=== PATIENT | female | born 1990 | race Caucasian/White ===

== ENCOUNTER → 2017-09-24 11:03 | Outpatient (CLI) | payer BC, SELFPAY ==
--- NOTE | 2017-09-24 11:07 | RAD_ITS ---
STUDY: X-RAY - LEFT HAND, ATTENTION FOURTH FINGER REASON FOR EXAM: Female, 27 years old. Pain, history of remote injury TECHNIQUE: Three view(s) of the finger were obtained. COMPARISON: None. FINDINGS: Bones: There are no acute osseous abnormalities. Joints: The visualized joints are unremarkable. Soft tissues: The soft tissues are unremarkable. Foreign body: None RAD/Finger(s) Min 2 Views IMPRESSION: No significant abnormalities are seen radiographically in the left fourth finger. Electronically Signed: Akilah Moser MD at 6:41 EDT Tel Direct: [phone], Service support ,
== END ==
PROVIDERS: Family Provider Family Medicine; PCP Family Medicine; Visit Provider Family Medicine
DX: M79.645 Pain in left finger(s) (principal)
CPT/HCPCS: 73140

== ENCOUNTER 2017-11-05 15:30 | Outpatient (RCR) | payer BC, SELFPAY ==
--- NOTE | 2017-10-09 15:20 | HP.OTEVAL_ITS ---
Patient's Visit Information HAILEY HINSON is a 27 year old F, referred to Occupational Therapy by Ursula Foster MD,, with a diagnosis of Finger pain L hand. Date of Evaluation: 10/08/17 Occupational Therapist: Ama Lechuga - Subjective Subjective: Pt seen for initial occupational therapy evaluation for increased pain L hand 4th digit. 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 She is R hand dominent. - Pain Left Hand 5 Pain Intensity Range: 5, 6, 7 - Objective Objective/Observation: Pt demo increased pain, edema and stiffness of L ring finger. - ROM MP: R 0/90' L 0/115 PIP: R 0/70, L 0/90 ROM Comments: Decreased ROM L PIP, MP joint flexion middle finger. - Strength Spool Fixer: R 85#, L 55# Lateral Pinch: R 20#, L 18# Tripod Pinch: R 16#, L 14# Strength Comments: Pt demo decreased merchandise manager strength and pinch with L hand. - Edema Other: Increased edema noted L 4th digit, no pitting edema - Sensation Sensation Comments: No numbness or tingling noted - DASH-Disabilities of Arm, Shoulder& Hand DASH Sum: 64 - Goals Goal:: Pt will demo increased L hand merchandise manager strength by 30# to increase independence with opening containers. Goal:: Pt will progress w/ L ring finger flexion of PIP and MP joint my 10' with use of ROM exercises and modalities at needed to increase pts functional use of L ring finger. Goal:: Pt will demo pain no greater than 1/10 L ring finger by d/c from occupational therapy with use of modalities as needed. Goal:: Pt will be educated on joint protection/energy conservation techniques for L ring finger with good understanding and demo 100%x. Goal:: Pt will be educated on HEP and scar tissue massage techniques to complete at home for L ring finger with good understanding and demo 100%x. - Rehabilitation General Assessment: Pt demo increased pain and stiffness L ring finger with decreased strength in L hand. Pt demo increased edema in L ring finger all indicating a need for occupational therapy services to increase her L hand strength, and decrease pain and stiffness with the use of modalities as well as educate on HEP to increase pts functional use of L ring finger. Rehabilitation Potential: Excellent - Anticipated Interventions Anticipated Interventions: A/AAROM/PROM, Strengthening, Edema Control, Scar Care , Massage, Modalities, Joint Protection/Energy Conservation, Fine Motor Coord/ Brian, ADL Training, Home Program - Visit Plan Frequency: 1-2x /Week Duration: 4 Weeks General Plan: Decrease pain and stiffness of L ring finger, increase ROM and strength of L ring finger. Educate on HEP, scar massage techniques. TEXT: Thank you for the opportunity to evaluate your patient. For Medicare and Medicare HMO plans, please review the plan of care and approve it. It will need to be FAXED BACK to us at [phone] for Medicare purposes. Please let me know if there are questions or concerns regarding this plan of care. Physician Signature: Date:
--- NOTE | 2017-11-05 17:52 | HP.OTDCSUM_ITS ---
HP - OT D/C Summary It has been my pleasure to treat HAILEY HINSON under orders from Ursula Foster MD, for the diagnosis of Finger pain L hand for a total of 6 visit(s). Please see the following information for a summary of their discharge status. - Objective Objective/Function: Community Cultural Development Officer strength L 60 #, R 70#,. 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 Goal:: Pt will progress w/ L ring finger flexion of PIP and MP joint my 10' with use of ROM exercises and modalities at needed to increase pts functional use of L ring finger. Goal:: Pt will demo pain no greater than 1/10 L ring finger by d/c from occupational therapy with use of modalities as needed. Goal:: Pt will be educated on joint protection/energy conservation techniques for L ring finger with good understanding and demo 100%x. Goal:: Pt will be educated on HEP and scar tissue massage techniques to complete at home for L ring finger with good understanding and demo 100%x. - Plan Plan: d/c from OT services this date. Pt states not having any more pain and able to use her L hand for all functional tasks without difficulty. - D/C Information Discharge Comments: Pt has made good progress with occupational therapy. Pt has no pain or edema in L ring finger and able to complete all functional tasks independently without assist needed as well as BADLs, IADLs. Pt has progressed with L hand dairy supplies sales representative strength by 5#. Pt has been educated on HEP to decrease stiffness, self massage techniques, blocking exercises at home if needed. Pt demo good understanding 100%x. Pt d/c from OT and no longer requires skilled OT services at this time. If there are questions or concerns regarding this patient's occupational therapy , please fell free to call me at [phone]. Thank you for the referral of this patient. Sincerely, Ama Lechuga
== END 2017-11-05 19:00 | disposition home or self-care (01) ==
LOC: OT 15:30
PROVIDERS: Family Provider Family Medicine; PCP Family Medicine; Visit Provider Family Medicine
DX: M79.646 Pain in unspecified finger(s) (principal)
CPT/HCPCS: 97035; 97110; 97140; 97165; 97530

== ENCOUNTER → 2018-10-27 17:07 | Outpatient (CLI) | payer BC, SELFPAY ==
[2018-10-27 11:42] VITALS: BMI 34.6
[2018-10-27 22:34] LABS: Chlamydia Trachomatis by PCR Negative (Negative); Neisserai gonorrhoeae by PCR Negative (Negative); Probe Check PASS; Sample Adequacy Control PASS; Specimen Processing Control PASS
[2018-10-30 16:34] LABS: HPV Reflexed? NOT INDICATED
== END ==
PROVIDERS: Family Provider Family Medicine; PCP Family Medicine; Visit Provider Nurse Practitioner Women's Health
DX: Z12.4 Encounter for screening for malignant neoplasm of cervix (principal)
CPT/HCPCS: 87086; 87088; 87491; 87591; 87624; 88175; G0145

== ENCOUNTER → 2018-10-28 07:37 | Outpatient (CLI) | payer BC, SELFPAY ==
[2018-10-27 11:42] VITALS: BMI 34.6
== END ==
PROVIDERS: Family Provider Family Medicine; PCP Family Medicine; Referring Provider Nurse Practitioner Women's Health; Visit Provider Nurse Practitioner Women's Health
DX: Z34.80 Encounter for supervision of other normal pregnancy, unspecified trimester (principal)

== ENCOUNTER → 2018-10-31 10:15 | Outpatient (CLI) | payer BC, SELFPAY ==
[2018-10-27 11:42] VITALS: BMI 34.6
[2018-10-31 10:53] LABS: Absolute Lymphocyte Count 2.23 X10^3/ul (0.83-4.51); Absolute Neutrophil Count 5.4 X10^3/uL (2.0-7.7); Basophil# 0.02 X10^3/uL; Basophil% 0.2 % (0-1); Eosinophil# 0.06 X10^3/uL; Eosinophils% 0.7 % (0-5); Hematocrit 37.3 % (37-47); Hemoglobin 12.5 g/dl (12.0-15.0); Lymphocyte # 2.23 X10^3/ul (4.0); Lymphocyte % 25.4 % (19-41); Mean Corp Hgb Conc 33.5 g/gl (32-36); Mean Corpuscular Hgb 28.9 pg (27.0-32.0); Mean Corpuscular Volume 86.3 fL (81-99); Mean Platelet Vol. 8.5 fl (6.2-12.0); Monocyte# 1.03 X10^3/uL; Monocyte% 11.7 % (0-10); Neutrophil # 5.43 X10^3/uL (2.7-7.7); Neutrophil % 61.9 % (47-70); POSITIVE COUNT NO; POSITIVE DIFFERENTIAL NO; POSITIVE MORPHOLOGY NO; Platelet Count 270 K/mm3 (150-450); RBC Distribution Width CV 13.5 % (11.6-14.6); RBC Distribution Width SD 42.8 fl (35.1-43.9); Red Blood Count 4.32 M/mm3 (4.2-5.4); White Blood Count 8.8 K/mm3 (4.4-11.0)
[2018-10-31 11:08] LABS: Glucose Challenge Gest 1H 50g 108 mg/dL (70-140)
[2018-10-31 12:03] LABS: HIV - WCH Non-Reactive (Nonreactive); Rubella IgG 30.5 IU/mL
[2018-11-03 11:30] LABS: HEPATITIS B SURFACE AG Negative (Negative)
[2018-11-07 02:51] LABS: Rapid Plasmin Reagin (RPR) NONREACTIVE (NONREACTIVE)
== END ==
PROVIDERS: Nurse Practitioner Women's Health; Family Provider Family Medicine; PCP Family Medicine; Referring Provider Obstetrics & Gynecology; Visit Provider Obstetrics & Gynecology
DX: Z34.80 Encounter for supervision of other normal pregnancy, unspecified trimester (principal)
CPT/HCPCS: 36415; 82950; 85025; 86592; 86703; 86762; 86850; 86900; 87340

== ENCOUNTER → 2018-11-19 10:52 | Outpatient (CLI) | payer BC, SELFPAY ==
[2018-11-19 10:31] VITALS: BMI 33.8
[2018-11-19 11:49] LABS: T4 Free Direct 0.96 ng/dL (0.76-1.46); Thyroid Stim Hormone (TSH) 0.29 uIU/mL (0.358-3.74)
== END ==
PROVIDERS: Family Provider Family Medicine; PCP Family Medicine; Visit Provider Obstetrics & Gynecology
DX: O99.284 Endocrine, nutritional and metabolic diseases complicating childbirth (principal); E01.0 Iodine-deficiency related diffuse (endemic) goiter; O30.001 Twin pregnancy, unspecified number of placenta and unspecified number of amniotic sacs, first trimester; Z3A.00 Weeks of gestation of pregnancy not specified
CPT/HCPCS: 36415; 84439; 84443

== ENCOUNTER → 2018-12-17 10:59 | Outpatient (CLI) | payer BC, SELFPAY ==
[2018-12-17 10:33] VITALS: BMI 34.1
== END ==
PROVIDERS: Family Provider Family Medicine; PCP Family Medicine; Referring Provider Nurse Practitioner Women's Health; Visit Provider Nurse Practitioner Women's Health
DX: Z00.00 Encounter for general adult medical examination without abnormal findings (principal)

== ENCOUNTER → 2019-02-13 16:00 | Outpatient (CLI) | payer BC, SELFPAY ==
[2019-02-13 15:26] VITALS: BMI 34.1
[2019-02-13 17:42] LABS: T4 Free Direct 0.83 ng/dL (0.76-1.46); Thyroid Stim Hormone (TSH) 0.73 uIU/mL (0.358-3.74)
== END ==
PROVIDERS: Family Provider Family Medicine; PCP Family Medicine; Referring Provider Obstetrics & Gynecology; Visit Provider Obstetrics & Gynecology
DX: O30.042 Twin pregnancy, dichorionic/diamniotic, second trimester (principal); Z3A.00 Weeks of gestation of pregnancy not specified
CPT/HCPCS: 36415; 84439; 84443

== ENCOUNTER → 2019-03-11 13:37 | Outpatient (CLI) | payer BC, SELFPAY ==
[2019-03-11 13:19] VITALS: BMI 34.1
[2019-03-11 14:25] LABS: Absolute Lymphocyte Count 2.05 X10^3/uL (0.83-4.51); Absolute Neutrophil Count 7.6 X10^3/uL (2.0-7.7); Basophil# 0.04 X10^3/uL; Basophil% 0.4 % (0-1); Eosinophil# 0.06 X10^3/uL; Eosinophils% 0.6 % (0-5); Hematocrit 32.9 % (37-47); Hemoglobin 11.2 g/dL (12.0-15.0); Lymphocyte # 2.05 X10^3/ul (4.0); Lymphocyte % 18.9 % (19-41); Mean Corpuscular Hgb 30.3 pg (27.0-32.0); Mean Corpuscular Volume 88.9 fL (81-99); Mean Platelet Vol. 9.3 fl (6.2-12.0); Monocyte# 1.05 X10^3/uL; Monocyte% 9.7 % (0-10); NRBC Flagged by Analyzer 0 % (0-5); Neutrophil # 7.58 X10^3/uL (2.7-7.7); Neutrophil % 69.7 % (47-70); Platelet Count 228 K/mm3 (150-450); RBC Distribution Width CV 13.3 % (11.6-14.6); RBC Distribution Width SD 43.6 fl (35.1-43.9); White Blood Count 10.9 K/mm3 (4.4-11.0)
[2019-03-11 14:32] LABS: Glucose Challenge Gest 1H 50g 115 mg/dL (70-140)
== END ==
PROVIDERS: Family Provider Family Medicine; PCP Family Medicine; Referring Provider Obstetrics & Gynecology; Visit Provider Obstetrics & Gynecology
DX: O09.90 Supervision of high risk pregnancy, unspecified, unspecified trimester (principal)
CPT/HCPCS: 36415; 82950; 85025

== ENCOUNTER → 2019-04-25 09:53 | Outpatient (CLI) | payer BC, SELFPAY ==
[2019-04-22 09:32] VITALS: BMI 34.1
== END ==
PROVIDERS: Family Provider Family Medicine; PCP Family Medicine; Referring Provider Nurse Practitioner Women's Health; Visit Provider Nurse Practitioner Women's Health
DX: L50.9 Urticaria, unspecified (principal)
CPT/HCPCS: 36415

== ENCOUNTER → 2019-05-13 17:14 | Outpatient (CLI) | payer BC, SELFPAY ==
[2019-05-13 10:27] VITALS: BMI 34.1
== END ==
PROVIDERS: Family Provider Family Medicine; PCP Family Medicine; Referring Provider Obstetrics & Gynecology; Visit Provider Obstetrics & Gynecology
DX: Z34.93 Encounter for supervision of normal pregnancy, unspecified, third trimester (principal); Z3A.36 36 weeks gestation of pregnancy
CPT/HCPCS: 87081

== ENCOUNTER 2019-05-21 04:15 | Inpatient (IN) | payer BC, SELFPAY ==
[2019-05-20 11:47] VITALS: BMI 34.1
[2019-05-21] VITALS (17 sets, daily range): BP systolic 111–145; BP diastolic 56–85; PULSE 65–98; RESP 12–19; TEMP 35.6–37.2; O2SAT 97–100; BMI 40.5
[2019-05-21] MEDS: Lactated Ringers 500 ML 999 ML IV (04:32)
[2019-05-21 04:48] LABS: Absolute Lymphocyte Count 3.11 X10^3/uL (0.83-4.51); Absolute Neutrophil Count 6.6 X10^3/uL (2.0-7.7); Basophil# 0.05 X10^3/uL; Basophil% 0.4 % (0-1); Eosinophil# 0.06 X10^3/uL; Eosinophils% 0.5 % (0-5); Hematocrit 36.1 % (37-47); Hemoglobin 11.7 g/dL (12.0-15.0); Lymphocyte # 3.11 X10^3/ul (4.0); Lymphocyte % 27.4 % (19-41); Mean Corp Hgb Conc 32.4 g/dL (32-36); Mean Corpuscular Volume 86.4 fL (81-99); Mean Platelet Vol. 10.5 fl (6.2-12.0); Monocyte# 1.41 X10^3/uL; Monocyte% 12.4 % (0-10); NRBC Flagged by Analyzer 0 % (0-5); Neutrophil # 6.64 X10^3/uL (2.7-7.7); Neutrophil % 58.7 % (47-70); Platelet Count 283 K/mm3 (150-450); RBC Distribution Width CV 13.3 % (11.6-14.6); RBC Distribution Width SD 41.2 fl (35.1-43.9); Red Blood Count 4.18 M/mm3 (4.2-5.4); White Blood Count 11.3 K/mm3 (4.4-11.0)
--- NOTE | 2019-05-21 04:54 | HP.PCM_ITS ---
- Problem List (1) Active labor at term Status: Acute (2) Dizygotic twin Status: Acute Comment: Fraternal twins Female/Female, Brittney Terrazas (3) Status: Acute Qualifiers: Comment: normal echo, low risk NIPT. Normal Growth deliver @ 38 wks (4) Supervision of high-risk Status: Acute Qualifiers: Comment: PRR ALEXX 06/04/19 girls- Nini Lugo PC:Case Spouse: Sam History Date of Admission: 06/24/17 Final ALEXX: 06/04/19 Gestational age: 38 Weeks and 0 Days History of this : This is a 29 year-old, at 38 weeks gestational age and is in active labor. has been complicated by a diamniotic dichorionic that initially had severe IUGR and growth discordance between the twins and then the growth discrepancy normalized and on most recent ultrasound there was only a 1 ounce difference between the 2 twins. Patient has started having contractions last evening and the increase in intensity here in the last hour. She denies any bleeding or loss of fluid admits good movement x2. Allergies No Known Allergies Allergy (Verified 05/21/19 04:43) Home Medications: Home Medications Vits [Prenatabs FA] 1 tab PO DAILY 06/24/17 ondansetron 4 mg disintegrating tablet 4 mg PO Q4H PRN #60 tab 10/27/18 Acetaminophen [Tylenol Extra Strength] 500 - 1,000 mg PO Q6H PRN PRN 05/21/19 Ranitidine HCl [Acid Development And Planning Engineer] 150 mg PO BID 05/21/19 Smoking Status: Never smoker Alcohol: None Number of Fetus(es): 1 NST - FHR Rate Baby A Baseline: 130 Variability:: Moderate Accelerations:: 15 x 15 Decelerations:: None NST Reactive:: Yes FHR Category:: Category I Uterine Activity:: q2 - FHR Rate Baby B Baseline: 130 Variability:: Moderate Accelerations:: 15 x 15 Decelerations:: None NST Reactive:: Yes FHR Category:: Category I Uterine Activity:: q2 History Past Pregnancies: Past Pregnancies additional social history: Sam Pregancy History 2 Elective abortions Hx Para 1 Spontaneous abortions Hx # Term Pregnancies Ectopic pregnancies Hx # Pregnancies Multiple births # of living children 1 Past Pregnancies Del. Date Name GA/Weeks Outcome Route Bth Weight Infant Gen Labor Lgth Anesth esia Del Ernieattoña Provider FOB 06/25/172016 Case 40 live - full term 7 bs6oz Male epidural [facility] Labs: Mom's Labs & Results 05/21/19 05/21/19 04:32 04:32 WBC 11.3 H RBC 4.18 L Hgb 11.7 L Hct 36.1 L MCV 86.4 MCH 28.0 MCHC 32.4 RDW Std Deviation 41.2 RDW Coeff of Juan 13.3 Plt Count 283 MPV 10.5 Immature Gran % (Auto) 0.600 Neut % (Auto) 58.7 Lymph % (Auto) 27.4 [place] % (Auto) 12.4 H Eos % (Auto) 0.5 Baso % (Auto) 0.4 Absolute Neuts (auto) 6.6 Absolute Lymphs (auto) 3.11 Nucleated RBC % 0 Blood Type Pending Antibody Screen Pending Social History Alleged father Sam Carcamo Hx Smoking No Smoking Status Never smoker Expected Infant Delivery Method: Spontaneous Vaginal Review of Systems Constitutional: Denies: Fever, Malaise Eyes: Denies: Blurred vision, Vision Change HEENT: Denies: Head Aches, Visual Changes Cardiovascular: Denies: Chest Pain, Palpitations Respiratory: Denies: Cough, Shortness of Breath, Wheezing Gastrointestinal: Denies: Abdominal Pain, Diarrhea, Nausea, Vomiting Genitourinary: Denies: Dysuria, Hematuria Musculoskeletal: Denies: Joint Pain, Muscle pain Skin: Denies: Lesions, Rash Neurological: Denies: Blurred vision, Focal weakness, Headaches Psychiatric: Denies: Anxiety, Depression Endocrine: Denies: Heat/ Cold Intolerance Hematologic/ Lymphatic: Denies: Easy Bruising, Easy Bleeding Physical Exam General: Alert, Cooperative, No apparent distress HEENT: Atraumatic, Normocephalic. Negative for: Thyromegaly, Lymphadenopathy Cardiovascular: Regular rate Lungs: Normal air movement Abdomen: Soft, Non Tender, Gravid Neurological: Deep Tendon Reflexes 2+/4 and Symmetrical, Neuro grossly intact. Negative for: Clonus RN REHABILITATION: Normal external genitalia. Negative for: Vulvar lesions Estimated gestational size: Appropriate for gestational size Presentation: - - vertex/oblique head down Assessment/Plan All Active Problems (Last Reviewed 05/20/19 @ 11:09 by Jessie Carr) Active labor at term (Acute) Dizygotic twin (Acute) Supervision of high-risk (Acute) (Acute) Discordant growth in twin gestation (Resolved) IUGR (intrauterine growth restriction) affecting care of mother (Resolved) Nausea/vomiting in (Resolved) PROM (premature rupture of membranes) (Resolved) Supervision of normal (Resolved) Thyromegaly (Resolved) This is a 29 year-old, , at 38 weeks gestational age presents IAL. Patient presents IAL, plan expectant management for , pitocin/AROM PRN if needed. Pain management: Plans epidural. GBS negative. Management of any complications: Vertex/oblique head down pr esentation. MFM recommendation for vaginal delivery and patient counseled regarding risk benefits alternatives of vaginal delivery versus primary and patient wishes to proceed with trial of labor. I have reviewed the [facility] and made any clinically relevant updates.
[2019-05-21] MEDS: Lactated Ringers 1,000 ML 200 ML IV (05:02)
--- NOTE | 2019-05-21 06:17 | FALS_PTH ---
PATIENT: HAILEY HINSON LOC: [facility] U#:[id number] AGE/SX: 29/F ROOM: WP021 RE05/21/[address]: Dr. Malu Davidson MD : 1990 BED: 1 DIS: 05/23/2019 SPEC #: [id number] RECD: 05/21/19 11:03 STATUS: KANDI RENeno #: [id number] TONY: 05/21/19 06:[address]: Malu Davidson DEPT: SURGICAL PATHOLOGY RECD BY: Chi Amezcua ENTERED: 05/21/19 11:18 SP TYPE: FALL TUBES OTHR DR: Dr. Ursula Foster MD Tissues: A - Fallopian tube B - Placenta, NOS Procedures: Surgery Specimen Level II Surgery Specimen Level V HEADER OPERATION: Tubal ligation, vaginal delivery/primary section PRE-OP DIAGNOSIS: Sterilization; twins TISSUE SUBMITTED: A - Fallopian tubes, suture in left, B - Twin placenta MICROSCOPIC DIAGNOSIS A. Right and left fallopian tubes, bilateral partial salpingectomies: Complete cross-sections of fallopian tubes with no pathologic change. B. Dichorionic diamniotic twin placenta: Placenta 1 (428 gm): Umbilical cord - trivascular with no inflammation. Placental membranes - acute deciduitis. Placental disc - organizing intraparenchymal hemorrhage, Walker-Parth change and frequent intraparenchymal fibrin plaques. Placenta 2 (331 gm): Umbilical cord - trivascular with no inflammation. Placental membranes - acute deciduitis. Placental disc -Walker-Parth change and intervillous congestion. AM:jax 05/26/19 MICROSCOPIC DESCRIPTION Slides are reviewed. GROSS DESCRIPTION A - Received is one container labeled with the patient's name and designated bilateral fallopian tubes. The specimen consists of two fallopian tubes. The right fallopian tube measures 3 x 0.6 cm and left fallopian tube measures 3 x 0.7 cm. Both fallopian tubes have normal fimbriated ends. No mass lesions are identified. Anthropologist Physical sections are submitted in two cassettes as follows: 1 - right fallopian tube, 2??left fallopian tube. / AM:jax 05/21/19 B - SPECIMEN: TWIN PLACENTA / CLINICAL INFORMATION: A. Weight: A - 2.38 kg; B - 2.81 kg B. Gestational Age: 38 weeks C. Sex: A - Female, B - Female PLACENTA 1: The specimen is received in two containers labeled specimen B and container one of two contains a placenta in two pieces. No dividing membranous septum is noted on the surface of the placenta. PLACENTAL WEIGHT (POST FIXATION): Both pieces in aggregate weigh 428 gm. The completeness of placenta cannot be assessed due to fragmented nature of the body of the placenta. PLACENTAL DIMENSIONS: 14 x 14 x 5 cm PLACENTAL SHAPE: Usual ovoid PLACENTAL WEIGHT FOR GESTATIONAL AGE: Within 10-99th percentile (over/under percentile) MEMBRANES - Present A. Insertion: Marginal B. Site of rupture from edge: at edge of placental disc C. Color of membrane: Feliz-reid D. Abnormalities: None UMBILICAL CORD - Present. The cord shows a clamp. A. Color: Feliz-reid B. Insertion: Marginal and focally and also shows velamentous insertion at a distance of 4 cm. C. Length: 30 cm D. Diameter: 1.2 cm E. Number of vessels: Three F. Abnormalities: None PLACENTAL DISC - Present A. Color of surface: Feliz-reid B. surface abnormalities: None C. Maternal cotyledons: Intact with minimal tears D. Attached retro placental clot: No clot E. Cut surface: Dark red and spongy F. Lesions: Sections reveal a hemorrhagic lesion measuring 1 cm in greatest dimension. G. Separate clot: Absent PLACENTA 2: The second container is labeled as two of two. A dividing membranous septum is not seen on the surface. PLACENTAL WEIGHT (POST FIXATION): 331 gm PLACENTAL DIMENSIONS: 15 x 15 x 3 cm PLACENTAL SHAPE: Usual ovoid PLACENTAL WEIGHT FOR GESTATIONAL AGE: Within 10-99th percentile (over/under percentile) MEMBRANES - Present A. Insertion: Marginal B. Site of rupture from edge: 10 cm from edge of placental disc C. Color of membrane: Feliz-reid D. Abnormalities: None UMBILICAL CORD - Present A. Color: Feliz-reid B. Insertion: Paracentral C. Length: 19 cm D. Diameter: 1.5 cm E. Number of vessels: Three F. Abnormalities: None PLACENTAL DISC - Present A. Color of surface: Feliz-reid B. surface abnormalities: The surface shows two feliz-white plaques. C. Maternal cotyledons: Intact with minimal tears D. Attached retro placental clot: No clot E. Cut surface: Dark red and spongy F. Lesions: None G. Separate clot: Absent SECTIONS SUBMITTED: 11 cassettes 1-5 - placenta received in container labeled one of two (1 - membranes, 2 - umbilical cord, end inked black, 3-5 - body of the placenta with 3 containing the lesion). 6-11 - placenta received in container labeled two of two (6 - membranes, 7 - umbilical cord, maternal end, 8 - umbilical cord, end, 9-11 - body of the placenta). SJ:jax 05/25/19 TC:2 CPT: 00729 x2, 02442 x2
[2019-05-21] MEDS: Cefazolin 2 GM in 0.9% Normal Saline 100 ML IV (06:18)
--- NOTE | 2019-05-21 06:38 | RAD_ITS ---
INDICATION: Status post manual delivery. Foreign body. EXAMINATION/TECHNIQUE: X-RAY - supine view Abdomen COMPARISON: None FINDINGS: BOWEL GAS PATTERN: Non-obstructive. No bowel or stomach distention. FREE AIR: Not assessed on a single supine view. ORGANOMEGALY: Prominent uterus in keeping with the recent vaginal delivery. CALCIFICATIONS: No abnormal calcifications observed. LOWER CHEST: No acute pathology. BONES AND SOFT TISSUES: No acute pathology. RAD/Abdomen Single View (Portable) IMPRESSION: No radiopaque foreign body is seen. Electronically Signed: Reji Woo, at 8:33 EST , Service support ,
--- NOTE | 2019-05-21 08:26 | NURSING ---
XRay for no count prior to STAT section.
--- NOTE | 2019-05-21 08:41 | PCM.OPRPT ---
Problem List (1) Active labor at term Status: Acute (2) Dizygotic twin Status: Acute Comment: Fraternal twins Female/Female, Brittney Nini (3) Status: Acute Qualifiers: Comment: normal echo, low risk NIPT. 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 The head was delivered atraumatically. The anterior and posterior shoulders delivered without complication followed by the rest of the and the infant was placed on the maternal abdomen. Delayed cord clamping was employed for approximately 60 seconds. Cord was clamped and cut and then the second fetus was assessed. position was found to be transverse hands feet down. External cephalic version and then internal cephalic version both were attempted multiple times and persistent transverse presentation was noted and therefore the decision was made for primary low transverse . Patient was prepped and draped the splash prep and scalpel used to incise the skin and fascia and then the incision was stretched laterally. Low transverse uterine incision was made through and the placenta was encountered and removed followed by the infant's buttocks which was delivered atraumatically followed by sweeping the legs anteriorly in the right left arms anteriorly and then flexing the head to deliver. Uterus was exteriorized cleared of all clots and debris the placenta was removed. Uterine incision was closed in a single layer closure and was noted to have excellent hemostasis. Bilateral partial salpingectomy was performed via the [employer] method and was noted to [place] hemostasis. Uterus was returned to the maternal abdomen and incision was closed in the peritoneum with 3-0 Monocryl and fascia closed with 0 strata fix suture. Subcutaneous tissue reapproximated and skin closed with 4-0 Monocryl. Amniotic Membrane Rupture Type: Artificial Amniotic Fluid Description: Clear Placenta Disposition: [facility] Specimen(s) sent to pathology: placenta Drain: Hinojosa to straight drain Cord Entanglement: None Cord Vessel Description: 3 Vessels Esitmated Blood Loss (ml): 900 Infant Gender: Female Delayed cord clamping: Yes Antibiotic Given: Ancef 2 grams IV x1, Zithromax 500 mg/5 mL X1 Pt instructed on risks of surgery: Bleeding, Anesthesia Risks Complications: - - baby B transverse presentation - Admit VTE Documentation VTE Present on Admission: No Multi Select Codes - Urinary/Genital Urinary/Genital CPT Codes: 95498 C/S+TL, 86367 Vaginal Delivery Only
[2019-05-21] MEDS: Ketorolac 30 MG/ML Syringe IV ×3 (09:01→20:50)
[2019-05-21] MEDS: Oxytocin 30 units/NS 500 ml 30 UNITS/500 ML IV.SOLN 167 UNITS IV (09:02)
[2019-05-21] MEDS: oxyCODONE 5 MG Tablet 10 MG PO (09:41)
[2019-05-21] MEDS: oxyCODONE 5 MG Tablet PO ×3 (13:58→21:59)
--- NOTE | 2019-05-21 14:22 | NURSING ---
reviewed student's charting for completeness. Student did the assessments with the primary nurse cass
[2019-05-21] MEDS: Senna/Docusate Sodium 1 Tablet PO (15:08)
[2019-05-21] MEDS: 0.9% Saline Lock 10 ML Syringe IV ×2 (15:10→20:50)
[2019-05-21 18:12] LABS: Pathology Specimen OB SEE PATHOLOGY REPORT
[2019-05-22 00:12] VITALS: BP 111/59; PULSE 90; RESP 18
[2019-05-22] MEDS: oxyCODONE 5 MG Tablet PO ×3 (01:43→10:09)
[2019-05-22] MEDS: Ketorolac 30 MG/ML Syringe IV ×4 (02:18→19:50)
[2019-05-22] MEDS: 0.9% Saline Lock 10 ML Syringe IV ×3 (02:19→13:38)
[2019-05-22 04:05] VITALS: BP 125/81; PULSE 88; RESP 17; TEMP 36.7
[2019-05-22 06:43] LABS: Hematocrit 31.7 % (37-47); Hemoglobin 10.1 g/dL (12.0-15.0); Mean Corp Hgb Conc 31.9 g/dL (32-36); Mean Corpuscular Hgb 27.7 pg (27.0-32.0); Mean Corpuscular Volume 87.1 fL (81-99); Mean Platelet Vol. 10.7 fl (6.2-12.0); Platelet Count 244 K/mm3 (150-450); RBC Distribution Width CV 13.7 % (11.6-14.6); RBC Distribution Width SD 42.6 fl (35.1-43.9); Red Blood Count 3.64 M/mm3 (4.2-5.4); White Blood Count 15.5 K/mm3 (4.4-11.0)
[2019-05-22 08:30] VITALS: BP 139/88; PULSE 76; RESP 16; TEMP 36.4; O2SAT 100
--- NOTE | 2019-05-22 08:34 | PCM.PN.OB ---
Patient Problems: Active and Suspected Problems (Last Reviewed 05/20/19 @ 11:09 by Jessie Carr) Active labor at term (Acute) Subjective: doing well no complaints pain controlled no CP SOB N V ambulating well tolerating po lochia moderate, going well. bottle feeding also, twin girls. - Physical Exam Vitals/I&O's: Vital Signs Temp Pulse Resp BP Pulse Ox 98.0 F 88 17 125/81 H 100 05/22/19 04:05 05/22/19 04:05 05/22/19 04:05 05/22/19 04:05 05/21/19 15:15 Oxygen Delivery Method Room Air Weight: 258 lb 9.636 oz Body Mass Index (BMI) 40.5 Intake and Output for Last 24 Hours 05/20/19 05/21/19 05/22/19 23:59 23:59 23:59 Intake Total 1607.75 / 1607.75 Output Total 550 / 550 600 / 600 Balance 1057.75 / 1057.75 -600 / -600 General: Alert, Oriented x3 Abdomen: Soft, Non-Distended, - - FF below U. Dressing dry and intact Laboratory Results 05/22/19 06:05: WBC 15.5 H, RBC 3.64 L, Hgb 10.1 L, Hct 31.7 L, MCV 87.1, MCH 27.7, MCHC 31.9 L, RDW Std Deviation 42.6, RDW Coeff of Juan 13.7, Plt Count 244, MPV 10.7 Current Medications Acetaminophen (Tylenol) 1,000 mg PO Q8H PRN PRN Reason: Pain Score 1-3/10 Bisacodyl (Dulcolax) 10 mg RECTAL UD PRN PRN Reason: If no BM Hydrocortisone (Hytone) 1 applic TOPICAL TID PRN PRN; Protocol PRN Reason: Discomfort Hydromorphone HCl (Dilaudid Inj) 0.5 mg IV Q3H PRN PRN PRN Reason: Pain Score 6-10/10 Naloxone HCl 4 mg/ Dextrose 504 mls @ 0 mls/hr IV .Q0M PRN; Protocol PRN Reason: Respiratory depression Naloxone HCl 4 mg/ Dextrose 504 mls @ 0 mls/hr IV .Q0M PRN; Protocol PRN Reason: To maintain Resp. rate >10 Ketorolac Tromethamine (Toradol) 30 mg IV Q6H JODY Stop: 05/23/19 03:01 Last Admin: 05/22/19 02:18 Dose: 30 mg Documented by: Methylergonovine Maleate (Methergine) 0.2 mg IM X1 PRN PRN Reason: Uterine Atony Naloxone HCl (Narcan) 0.02 mg IV Q1M PRN PRN Reason: RR <10 and pt unresponsive Naproxen (Naprosyn) 250 - 500 mg PO Q8H PRN PRN PRN Reason: Pain Score 1-3/10 Ondansetron HCl (Zofran) 4 mg IV Q4H PRN PRN PRN Reason: Nausea Oxycodone HCl (Oxyir) 5 - 10 mg PO Q4H PRN PRN PRN Reason: Pain Score 4-10/10 Last Admin: 05/22/19 05:42 Dose: 10 mg Documented by: Prochlorperazine Edisylate (Compazine Iv) 10 mg IV Q6H PRN PRN PRN Reason: NAUSEA Senna/Docusate Sodium (Senokot-S, Ora-Colace) 0 tablet PO DAILY PRN PRN Reason: Constipation Last Admin: 05/21/19 15:08 Dose: 2 tablet Documented by: Simethicone (Mylicon) 80 mg PO PCHS PRN PRN Reason: Indigestion/stomach pain Last Admin: 05/22/19 01:44 Dose: 80 mg Documented by: Sodium Chloride () 5 - 15 ml IV UD PRN PRN Reason: SALINE FLUSH Last Admin: 05/22/19 02:19 Dose: 10 ml Documented by: Medical Necessity - Tobacco Use Smoking Status: Never smoker Assessment/Plan All Active Problems (Last Reviewed 05/20/19 @ 11:09 by Jessie Carr) Active labor at term (Acute) Dizygotic twin (Acute) Supervision of high-risk (Acute) (Acute) Discordant growth in twin gestation (Resolved) IUGR (intrauterine growth restriction) affecting care of mother (Resolved) Nausea/vomiting in (Resolved) PROM (premature rupture of membranes) (Resolved) Supervision of normal (Resolved) Thyromegaly (Resolved) s/p LTCS PPD # 1 1. routine post care 2. breast feeding- support given 3. rh positive 4. rubella immune
[2019-05-22] MEDS: Senna/Docusate Sodium 1 Tablet PO (10:14)
[2019-05-22 13:35] VITALS: BP 122/81; PULSE 80; RESP 16; TEMP 37.1; O2SAT 100
[2019-05-22] MEDS: Acetaminophen 500 MG Tablet 1000 MG PO ×2 (13:38→20:59)
[2019-05-22 19:50] VITALS: BP 141/72; PULSE 72; RESP 16; TEMP 37
[2019-05-23] MEDS: Ketorolac 30 MG/ML Syringe IV (01:26)
[2019-05-23] MEDS: 0.9% Saline Lock 10 ML Syringe IV (01:27)
[2019-05-23 01:30] VITALS: BP 133/77; PULSE 77; RESP 18; TEMP 36.6
--- NOTE | 2019-05-23 01:30 | NURSING ---
0130 Pt complains of throbbing headache. Pt placed supine with WEATHERS 2/10. When bed raised to SF position, pain became throbbing 6-8/10 with humming in ears. Advised to drink caffeine and increase fluid intake. Medicated with scheduled Toradol.
--- NOTE | 2019-05-23 06:20 | NURSING ---
0600 States that headache seems more frontal now and wonders if it may be related to sinuses. pain was not as bad when going to the bathroom the last time.
[2019-05-23 09:00] VITALS: BP 136/72; PULSE 64; RESP 18; TEMP 37.2
[2019-05-23] MEDS: Acetaminophen 500 MG Tablet 1000 MG PO (09:00)
--- NOTE | 2019-05-23 09:16 | PCM.PN.OB ---
Patient Problems: Active and Suspected Problems (Last Reviewed 05/20/19 @ 11:09 by Jessie Carr) Active labor at term (Acute) Subjective: doing well no complaints pain controlled no CP SOB N V ambulating well tolerating po lochia moderate, going well for both babies. - Physical Exam Vitals/I&O's: Vital Signs Temp Pulse Resp BP Pulse Ox 97.8 F 77 18 133/77 H 100 05/23/19 01:30 05/23/19 01:30 05/23/19 01:30 05/23/19 01:30 05/22/19 13:35 Oxygen Delivery Method Room Air Weight: 258 lb 9.636 oz Body Mass Index (BMI) 40.5 Intake and Output for Last 24 Hours 05/21/19 05/22/19 05/23/19 23:59 23:59 23:59 Intake Total 1607.75 / 1607.75 Output Total 550 / 550 600 / 600 Balance 1057.75 / 1057.75 -600 / -600 General: Oriented x3 Abdomen: Soft, Non-Distended, - - FF below U. Dressing dry and intact Current Medications Acetaminophen (Tylenol) 1,000 mg PO Q8H PRN PRN Reason: Pain Score 1-3/10 Last Admin: 05/23/19 09:00 Dose: 1,000 mg Documented by: Bisacodyl (Dulcolax) 10 mg RECTAL UD PRN PRN Reason: If no BM Hydrocortisone (Hytone) 1 applic TOPICAL TID PRN PRN; Protocol PRN Reason: Discomfort Hydromorphone HCl (Dilaudid Inj) 0.5 mg IV Q3H PRN PRN PRN Reason: Pain Score 6-10/10 Naloxone HCl 4 mg/ Dextrose 504 mls @ 0 mls/hr IV .Q0M PRN; Protocol PRN Reason: Respiratory depression Naloxone HCl 4 mg/ Dextrose 504 mls @ 0 mls/hr IV .Q0M PRN; Protocol PRN Reason: To maintain Resp. rate >10 Methylergonovine Maleate (Methergine) 0.2 mg IM X1 PRN PRN Reason: Uterine Atony Naloxone HCl (Narcan) 0.02 mg IV Q1M PRN PRN Reason: RR <10 and pt unresponsive Naproxen (Naprosyn) 250 - 500 mg PO Q8H PRN PRN PRN Reason: Pain Score 1-3/10 Ondansetron HCl (Zofran) 4 mg IV Q4H PRN PRN PRN Reason: Nausea Oxycodone HCl (Oxyir) 5 - 10 mg PO Q4H PRN PRN PRN Reason: Pain Score 4-10/10 Last Admin: 05/22/19 10:09 Dose: 10 mg Documented by: Prochlorperazine Edisylate (Compazine Iv) 10 mg IV Q6H PRN PRN PRN Reason: NAUSEA Senna/Docusate Sodium (Senokot-S, Ora-Colace) 0 tablet PO DAILY PRN PRN Reason: Constipation Last Admin: 05/22/19 10:14 Dose: 2 tablet Documented by: Simethicone (Mylicon) 80 mg PO PCHS PRN PRN Reason: Indigestion/stomach pain Last Admin: 05/23/19 01:10 Dose: 80 mg Documented by: Sodium Chloride () 5 - 15 ml IV UD PRN PRN Reason: SALINE FLUSH Last Admin: 05/23/19 01:27 Dose: 5 ml Documented by: Medical Necessity - Tobacco Use Smoking Status: Never smoker Assessment/Plan All Active Problems (Last Reviewed 05/20/19 @ 11:09 by Jessie Carr) Active labor at term (Acute) Dizygotic twin (Acute) Supervision of high-risk (Acute) (Acute) Discordant growth in twin gestation (Resolved) IUGR (intrauterine growth restriction) affecting care of mother (Resolved) Nausea/vomiting in (Resolved) PROM (premature rupture of membranes) (Resolved) Supervision of normal (Resolved) Thyromegaly (Resolved) s/p LTCS PPD # 2 twin . (girls 1. routine post care 2. breast feeding- support given 3. rh positive 4. rubella immune 5. home today
[2019-05-23] MEDS: Senna/Docusate Sodium 1 Tablet PO (09:17)
[2019-05-23] MEDS: oxyCODONE 5 MG Tablet PO ×2 (09:17→16:59)
--- NOTE | 2019-05-23 09:18 | DCINST_ITS ---
Additional Instructions: If you experience any of the following, contact your healthcare provider. * Bleeding that soaks a pad every hour for 2 hours * Fever 100.4 or higher * Unrelieved incision or abdominal pain * Swelling, redness, discharge or bleeding from your incision or episiotomy site * Your incision begins to separate * Problems urinating (including inability to urinate or burning while urinating). * Visual changes * Severe headache * Flu-like symptoms * Pain or redness in one of both of your breasts * Pain, warmth, tenderness or swelling in your legs, especially the calf area * Frequent nausea and vomiting * Symptoms of depression or anxiety If you experience any of the following, call 911 or go to the nearest Emergency Room. * Chest pain * Problems breathing * Seizure activity * Partial or complete paralysis of a body part, slurred speech, weakness or drooping of the face, or a sudden inability to walk or hold your balance Allergies/Adverse Reactions: Allergies No Known Allergies Allergy (Verified 05/21/19 04:43) Medications to take at Discharge Vits [Prenatabs FA] 1 tab PO DAILY 06/24/17 ondansetron 4 mg disintegrating tablet 4 mg PO Q4H PRN #60 tab 10/27/18 Acetaminophen [Tylenol Extra Strength] 500 - 1,000 mg PO Q6H PRN PRN 05/21/19 Naproxen [Naprosyn] 250 - 500 mg PO Q8H PRN PRN #30 tab 05/21/19 Oxycodone HCl/Acetaminophen [Percocet 5-325] 1 - 2 tab PO Q6H PRN PRN 7 Days #15 tab 05/21/19 Ranitidine HCl [Acid Director Of Audiology] 150 mg PO BID 05/21/19 The following prescriptions were given: Naproxen [Naprosyn] 250 - 500 mg PO Q8H PRN PRN #30 tab PRN Reason: MILD PAIN Transmission Status: Received by [facility] Oxycodone HCl/Acetaminophen [Percocet 5-325] 1 - 2 tab PO Q6H PRN PRN 7 Days #15 tab PRN Reason: Pain Transmission Status: Received by [facility] Follow-Up: Call to make an appointment with your doctor for an incision check in 1-2 weeks. You will also need a 6 week post- follow up appointment. Test results from this visit will be discussed in further detail at your follow- up appointment, if applicable. Primary Care Physician: Ursula Foster MD [Primary Care Provider] -
--- NOTE | 2019-05-23 09:18 | PCM.DCCSEC ---
Additional Instructions: If you experience any of the following, contact your healthcare provider. Bleeding that soaks a pad every hour for 2 hours Fever 100.4 or higher Unrelieved incision or abdominal pain Swelling, redness, discharge or bleeding from your incision or episiotomy site Your incision begins to separate Problems urinating (including inability to urinate or burning while urinating). Visual changes Severe headache Flu-like symptoms Pain or redness in one of both of your breasts Pain, warmth, tenderness or swelling in your legs, especially the calf area Frequent nausea and vomiting Symptoms of depression or anxiety If you experience any of the following, call 911 or go to the nearest Emergency Room. Chest pain Problems breathing Seizure activity Partial or complete paralysis of a body part, slurred speech, weakness or drooping of the face, or a sudden inability to walk or hold your balance Allergies/Adverse Reactions: Allergies No Known Allergies Allergy (Verified 05/21/19 04:43) Medications to take at Discharge Vits [Prenatabs FA] 1 tab PO DAILY 06/24/17 ondansetron 4 mg disintegrating tablet 4 mg PO Q4H PRN #60 tab 10/27/18 Acetaminophen [Tylenol Extra Strength] 500 - 1,000 mg PO Q6H PRN PRN 05/21/19 Naproxen [Naprosyn] 250 - 500 mg PO Q8H PRN PRN #30 tab 05/21/19 Oxycodone HCl/Acetaminophen [Percocet 5-325] 1 - 2 tab PO Q6H PRN PRN 7 Days #15 tab 05/21/19 Ranitidine HCl [Acid Dehydrator] 150 mg PO BID 05/21/19 The following prescriptions were given: Naproxen [Naprosyn] 250 - 500 mg PO Q8H PRN PRN #30 tab PRN Reason: MILD PAIN Transmission Status: Received by [facility] Oxycodone HCl/Acetaminophen [Percocet 5-325] 1 - 2 tab PO Q6H PRN PRN 7 Days #15 tab PRN Reason: Pain Transmission Status: Received by [facility] Follow-Up: Call to make an appointment with your doctor for an incision check in 1-2 weeks. You will also need a 6 week post- follow up appointment. Test results from this visit will be discussed in further detail at your follow-up appointment, if applicable. Primary Care Physician: Ursula Foster MD [Primary Care Provider] -
[2019-05-23] MEDS: Naproxen 250 MG Tablet PO (12:54)
[2019-05-23 13:50] VITALS: BP 126/62; PULSE 68; RESP 14; TEMP 36.7
[2019-05-26 14:18] LABS: Pathology Specimen OB SEE PATHOLOGY REPORT
== END 2019-05-23 17:25 | disposition home or self-care (01) | DRG 785 ==
PROVIDERS: Admitting Provider Obstetrics & Gynecology; Family Provider Family Medicine; PCP Family Medicine; Referring Provider Obstetrics & Gynecology; Visit Provider Obstetrics & Gynecology
DX: O30.043 Twin pregnancy, dichorionic/diamniotic, third trimester (principal); O32.2XX2 Maternal care for transverse and oblique lie, fetus 2; Z30.2 Encounter for sterilization; Z3A.38 38 weeks gestation of pregnancy; Z37.2 Twins, both liveborn
CPT/HCPCS: 59025; 59050; 74018; 85025; 85027; 86850; 86900; 86901; 88302; 88307; 99218; J7120; A4216; G0378

== ENCOUNTER 2019-06-23 12:47 | Emergency (ER) | payer BC, SELFPAY ==
[2019-06-02 12:09] VITALS: BMI 40.5
[2019-06-23 12:48] VITALS: BP 148/96; PULSE 113; RESP 15; TEMP 36.8; O2SAT 100; BMI 34.6
--- NOTE | 2019-06-23 13:08 | RAD_ITS ---
STUDY: X-RAY CHEST REASON FOR EXAM: Female, 29 years old. Lower extremity swelling. TECHNIQUE: Single AP portable view of the chest. COMPARISON: None. FINDINGS: The lungs are clear and expanded. There is no demonstrated pleural abnormality. Normal size heart. Normal mediastinum and ariana. Normal visualized pulmonary arteries. Normal visualized aortic arch and descending thoracic aorta. Normal visualized thoracic spine. Normal visualized ribs, clavicles, and shoulders. There is no demonstrated abnormality of the visualized soft tissue structures of the upper abdomen. RAD/Chest 1 View (Portable) IMPRESSION: Normal x-ray examination of the chest. Electronically Signed: Reji Woo, at 13:41 EST , Service support ,
--- NOTE | 2019-06-23 13:08 | EKG12_ITS ---
Test Reason : DVT Blood Pressure : / mmHG Vent. Rate : 088 BPM Atrial Rate : 088 BPM P-R Int : 154 ms QRS Dur : 082 ms QT Int : 342 ms P-R-T Axes : 038 036 024 degrees QTc Int : 413 ms Normal sinus rhythm Normal ECG Confirmed by NAKIA MUSA MD ([id number]), editor in chief SUGEY GARCIA ([id number]) on 06/24/2019 11:23:18 AM Referred By: LACEY Confirmed By:NAKIA MUSA MD
--- NOTE | 2019-06-23 13:09 | VDLE_ITS ---
Reason For Study: Swelling RIGHT LEFT GSV is normal. GSV is normal. CFV is compressible, spontaneous, phasic, CFV is compressible, spontaneous, phasic, competent and demonstrates normal competent, and demonstrates normal augmentation. augmentation. FV is compressible, spontaneous, phasic, FV is compressible, spontaneous, phasic, competent and demonstrates normal competent and demonstrates normal augmentation. augmentation. POP V is compressible, spontaneous, phasic, POP V is compressible, spontaneous, phasic, competent and demonstrates normal competent and demonstrates normal augmentation. augmentation. T/P Trunk is compressible. T/P Trunk is compressible. PTV is compressible. PTV is compressible. RT PerV is compressible. LT PerV is compressible. Procedure Exam performed portable in ED. A preliminary report was called and/or faxed to [facility]. Interpretation Summary Deep veins of the lower extremities are bilaterally patent and compressible segmentally. There is no evidence of deep vein thrombosis on either side. Valvular competence appears intact within the proximal deep venous systems bilaterally. The great saphenous veins appear bilaterally patent and compressible segmentally. Ordering Physician: Basil Red Referring Physician: Ursula Foster M.D. Performed By: Melina Chan RVT
--- NOTE | 2019-06-23 13:13 | ED.DCSUM_ITS ---
- ER Visit Summary Date of Service: 06/23/19 Chief Complaint: Bilateral leg swellings History of Present Illness: The patient is a 29 F no significant past medical history other than she had a twin delivery about a month ago. She had a C- section for the second twin. She since had a tubal ligation at that time also. States that during the she had significant swelling of both legs is actually improving but are still significantly swollen so she went to be evaluated. She is never had a DVT or PE. She denies chest pain. She denies any sense of shortness of breath. States during the she did not have hypertension or preeclampsia. States that she is urinating normally. Physical Examination: Young female no acute distress initial blood pressure 148/96. Pulse ox 100% on room air no signs of hypoxia. She is sitting upright in bed she is in no distress. Her significant other is at bedside. H EENT exam unremarkable. Neck nontender no JVD no lymphadenopathy. Lungs clear to auscultation bilaterally. Heart regular rhythm rate about 100 no murmur. Abdomen is soft and nontender normal bowel sounds no peritoneal signs. Extremities she has 1-2+ pitting edema both lower extremities is equal and symmetrical. Calves are nontender without cords. Both upper and lower extremities are neurovascularly intact with normal motor strength and sensation. Neurologically she is awake and alert with no focal motor deficits. Test Results: CBC normal. BMP normal with a normal BUN of 15 creatinine of 1. Liver enzymes normal except for an alk phos of 147. EKG is normal sinus rhythm rate of 88 with no signs of dysrhythmia. Chest x-ray normal. Normal cardiac silhouette. No pulmonary edema. No signs of any dilated cardiomyopathy. Emergency Department Course and Treatment: Patient with leg swelling after twin delivery a month ago however she had actually worse swelling during the she tells me. She will be evaluated for possible DVTs which I think is unlikely versus preeclampsia versus other etiologies. Repeat exam patient is doing well at 1651. Her current blood pressure is 123/80. Her labs are unremarkable. I think this is just resolving bilateral lower extremity edema from her . She is scheduled to follow-up with her SALON DESIGNER Dr. Daniel Deluna who I currently have on page. Treatment Plan: Elevate her legs. This should progressively improve. Follow-up with her OB. Disposition: Discharge Impression: Bilateral leg swelling twin delivery and 4 weeks ago. This note was generated with [employer] dictation software. It may contain incorrect words, spelling, and punctuation that were not noted in review of the chart prior to signing ED Disposition - Plan for ED Patient: Referrals: Ursula Foster MD [Primary Care Provider] -
[2019-06-23 13:36] LABS: Absolute Lymphocyte Count 1.32 X10^3/uL (0.83-4.51); Absolute Neutrophil Count 2.7 X10^3/uL (2.0-7.7); Basophil# 0.01 X10^3/uL; Basophil% 0.2 % (0-1); Hematocrit 41.4 % (37-47); Hemoglobin 13.3 g/dL (12.0-15.0); Lymphocyte # 1.32 X10^3/ul (4.0); Lymphocyte % 28.9 % (19-41); Mean Corp Hgb Conc 32.1 g/dL (32-36); Mean Corpuscular Hgb 27.7 pg (27.0-32.0); Mean Corpuscular Volume 86.1 fL (81-99); Mean Platelet Vol. 9.2 fl (6.2-12.0); Monocyte# 0.55 X10^3/uL; NRBC Flagged by Analyzer 0 % (0-5); Neutrophil # 2.68 X10^3/uL (2.7-7.7); Neutrophil % 58.7 % (47-70); Platelet Count 241 K/mm3 (150-450); RBC Distribution Width CV 14.7 % (11.6-14.6); Red Blood Count 4.81 M/mm3 (4.2-5.4); White Blood Count 4.6 K/mm3 (4.4-11.0)
[2019-06-23 13:53] LABS: AST(SGOT) 18 U/L (15-37); Alanine Aminotransfer ALT/SGPT 26 U/L (13-56); Albumin, Serum 3.9 g/dL (3.2-5.0); Alkaline Phosphatase 147 U/L (45-117); Anion Gap 5 (5-15); BUN 15 mg/dL (7-18); BUN/Creat Ratio 13.8 RATIO (10-20); Calcium,Total 8.9 mg/dL (8.5-10.1); Chloride 102 mmol/L (98-107); Creatinine, Serum 1.09 mg/dL (0.55-1.02); EST Glomerular Filtration Rate 63 mL/min (>60); Est Glom Filt Rate - Afr Amer 77 mL/min (>60); Estimated Creatinine Clearance 74.72 ml/min; Globulin 4.3 g/dL (2.2-4.2); Glucose 87 mg/dL (74-106); Potassium 3.8 mmol/L (3.5-5.1); Protein, Total 8.2 g/dL (6.4-8.2); Sodium Level 138 mmol/L (136-145)
[2019-06-23 16:00] VITALS: BP 123/80; PULSE 82; RESP 16; O2SAT 100
--- NOTE | 2019-06-23 16:56 | ED.DEP ---
ED Disposition - Plan for ED Patient: Disposition: Home or Assisted Living Instructions: ED Peripheral Edema, Bilateral Referrals: Malu Davidson MD [STAFF PHYSICIAN] - Keep Kecia appointment Additional Instructions: Follow-up with your next scheduled ENGINEER ASSISTANT appointment with Dr. Malu Davidson next week. This should progressively continue to get better as it has been since she delivered. All your labs were normal today. Your kidney function is normal. Elevate your legs as much as possible that will help the swelling to go down.
== END 2019-06-23 17:19 | disposition home or self-care (01) ==
PROVIDERS: Emergency Provider Emergency Medicine; Family Provider Family Medicine; PCP Family Medicine
DX: O90.89 Other complications of the puerperium, not elsewhere classified (principal); R60.0 Localized edema; Z98.51 Tubal ligation status
CPT/HCPCS: 71045; 80048; 80076; 85025; 93005; 93970; 99284; A4216

== ENCOUNTER → 2019-07-02 10:34 | Outpatient (CLI) | payer BC, SELFPAY ==
[2019-07-01 14:41] VITALS: BMI 34.6
[2019-07-02 10:59] LABS: Absolute Lymphocyte Count 1.78 X10^3/uL (0.83-4.51); Absolute Neutrophil Count 4.6 X10^3/uL (2.0-7.7); Basophil# 0.04 X10^3/uL; Basophil% 0.5 % (0-1); Eosinophil# 0.15 X10^3/uL; Hematocrit 41.4 % (37-47); Hemoglobin 13.1 g/dL (12.0-15.0); Lymphocyte # 1.78 X10^3/ul (4.0); Lymphocyte % 23.9 % (19-41); Mean Corp Hgb Conc 31.6 g/dL (32-36); Mean Corpuscular Hgb 27.3 pg (27.0-32.0); Mean Corpuscular Volume 86.3 fL (81-99); Mean Platelet Vol. 9.3 fl (6.2-12.0); Monocyte# 0.88 X10^3/uL; Monocyte% 11.8 % (0-10); NRBC Flagged by Analyzer 0 % (0-5); Neutrophil # 4.58 X10^3/uL (2.7-7.7); Neutrophil % 61.7 % (47-70); Platelet Count 304 K/mm3 (150-450); RBC Distribution Width CV 14.5 % (11.6-14.6); RBC Distribution Width SD 46.2 fl (35.1-43.9); White Blood Count 7.4 K/mm3 (4.4-11.0)
[2019-07-02 11:23] LABS: Thyroid Stim Hormone (TSH) 0.21 uIU/mL (0.358-3.74)
[2019-07-02 11:24] LABS: BNP,B-Type NATRIURETIC PEPTIDE 32.2 pg/mL (0-100)
== END ==
PROVIDERS: Family Provider Family Medicine; PCP Family Medicine; Visit Provider Obstetrics & Gynecology
DX: R60.9 Edema, unspecified (principal)
CPT/HCPCS: 36415; 83880; 84439; 84443; 85025

== ENCOUNTER → 2019-08-25 13:21 | Outpatient (CLI) | payer BC, SELFPAY ==
[2019-07-01 14:41] VITALS: BMI 34.6
== END ==
PROVIDERS: Family Provider Family Medicine; PCP Family Medicine; Referring Provider Family Medicine; Visit Provider Family Medicine
DX: R94.6 Abnormal results of thyroid function studies (principal)
CPT/HCPCS: 36415; 84443

== ENCOUNTER → 2019-11-03 11:41 | Outpatient (CLI) | payer BC, SELFPAY ==
[2019-07-01 14:41] VITALS: BMI 34.6
[2019-11-03 14:41] LABS: Absolute Lymphocyte Count 2.38 X10^3/uL (0.83-4.51); Absolute Neutrophil Count 3.1 X10^3/uL (2.0-7.7); Basophil# 0.03 X10^3/uL; Basophil% 0.5 % (0-1); Eosinophil# 0.09 X10^3/uL; Eosinophils% 1.4 % (0-5); Hematocrit 42.3 % (37-47); Hemoglobin 13.5 g/dL (12.0-15.0); Lymphocyte # 2.38 X10^3/ul (4.0); Lymphocyte % 36.7 % (19-41); Mean Corp Hgb Conc 31.9 g/dL (32-36); Mean Corpuscular Hgb 28.2 pg (27.0-32.0); Mean Corpuscular Volume 88.5 fL (81-99); Mean Platelet Vol. 9.4 fl (6.2-12.0); Monocyte# 0.86 X10^3/uL; Monocyte% 13.3 % (0-10); NRBC Flagged by Analyzer 0 % (0-5); Neutrophil # 3.12 X10^3/uL (2.7-7.7); Neutrophil % 47.9 % (47-70); Platelet Count 305 K/mm3 (150-450); RBC Distribution Width CV 13.2 % (11.6-14.6); RBC Distribution Width SD 42.8 fl (35.1-43.9); Red Blood Count 4.78 M/mm3 (4.2-5.4); White Blood Count 6.5 K/mm3 (4.4-11.0)
[2019-11-03 15:06] LABS: Thyroid Stim Hormone (TSH) 0.59 uIU/mL (0.358-3.74)
== END ==
PROVIDERS: PCP Family Medicine; Referring Provider Family Medicine; Visit Provider Family Medicine
DX: F32.9 Major depressive disorder, single episode, unspecified (principal)
CPT/HCPCS: 36415; 84443; 85025

== ENCOUNTER 2021-08-11 16:47 | Outpatient (CLI) | payer MEDICAID, SELFPAY ==
[2021-08-18 15:04] LABS: HPV APTIMA, High Risk Positive (Negative)
== END 2021-08-11 23:59 | disposition short-term general hospital (02) ==
LOC: LABSPEC 16:48
PROVIDERS: PCP Family Medicine; Visit Provider Obstetrics & Gynecology
DX: Z12.4 Encounter for screening for malignant neoplasm of cervix (principal)
CPT/HCPCS: 87624; 88175; G0145

== ENCOUNTER → 2022-08-20 | Outpatient (CLI) | payer MEDICAID, SELFPAY ==
[2022-08-23 04:07] LABS: Chlamydia By Nucleic Acid AMP Negative (Negative)
[2022-08-23 20:02] LABS: Gonococcus By Nucleic Acid AMP Negative (Negative)
[2022-08-27 23:17] LABS: HPV APTIMA, High Risk Negative (Negative)
== END | disposition home or self-care (01) ==
PROVIDERS: PCP Family Medicine; Referring Provider Nurse Practitioner Women's Health; Visit Provider Nurse Practitioner Women's Health
DX: Z12.4 Encounter for screening for malignant neoplasm of cervix (principal); Z11.3 Encounter for screening for infections with a predominantly sexual mode of transmission
CPT/HCPCS: 87491; 87591; 87624; 88175; G0145

== ENCOUNTER → 2023-08-21 | Outpatient (CLI) | payer MEDICAID, SELFPAY ==
--- OUTSIDE RECORDS SUMMARY | 2023-08-21 19:12 | XMS RPT_ITS | CCD ---
Author Name Unknown Address [id number] [place] [address] Organization [facility] Care Team Providers Care Dentist/Owner Name Role Phone JACQUELYN ELIAS Unavailable Unavail able LINDA FERRELL Unavailable Unavailable YOUSUF BROWN Unavailable Unavailable JACQUELYN ELIAS Unavailable Unavail able LARISSA TOMAS Unavailable Unavailable JORDAN, JORGE (CNM) Unavailable Unavailable JORDAN, JORGE (CNM) Unavailable Unavailable JORDAN, JORGE (CNM) Unavailable Unavailable JORDAN, JORGE (CNM) Unavailable Unavailable Kristin KILGORE, Ursula Shearer Primary Care Provider Craske III, DO, W. Don Unavailable CRASKE III, W. DON Attending Unavailable CRASKE III, W. DON Referring Unavailable JOLLIFF, URSULA GA Primary Care Unavailable CRASKE III, W. DON Attending Unavailable CRASKE III, W. DON Referring Unavailable JOLLIFF, URSULA GA Primary Care Unavailable CRASKE III, W. DON Attending Unavailable CRASKE III, W. DON Referring Unavailable JOLLIFF, URSULA GA Primary Care Unavailable Kristin KILGORE, Ursula Shearer Primary Care Provider 1( [phone] Craske III, DO, W. Don Unavailable URSULA FOSTER Primary Care Unavailable NICOLA GONZALEZ Attending Unavailable JOLLIFF, URSULA GA Primary Care Unavailable CRASKE III, W. DON Attending Unavailable CRASKE III, W. DON Admitting Unavailable JOLLIFF, URSULA GA Primary Care Unavailable CRASKE III, W. DON Attending Unavailable CRASKE III, W. DON Referring Unavailable JOLLIFF, URSULA GA Primary Care Unavailable CRASKE III, W. DON Attending Unavailable JOLLIFF, URSULA GA Primary Care Unavailable Char ZAMUDIO III Attending Unavailable URSULA FOSTER [facility] Care Unavailable Char ZAMUDIO III Attending Unavailable URSULA FOSTER [facility] Care Unavailable Char ZAMUDIO III Attending Unavailable Medications Current Medications Medication Drug Class(es) Dates Sig (Normalized) Sig (Original) ALPRAZolam 0.5 mg oral tablet (1 source) Benzodiazepine Start: 2022 take 1 tablet by mouth twice daily for anxiety ALPRAZolam (XANAX) 0.5 MG tablet take 1 tablet by mouth twice a day if needed for anxiety for 8 days 0 2022 Active azelaic acid 0.15 mg/mg topical gel (8 sources) End: 03-01-2022 azelaic acid (FINACEA) 15 % gel Apply topically 2 (two) times a day After skin is thoroughly washed and patted dry, gently but thoroughly massage a thin film of azelaic acid cream into the affected area twice daily, in the morning and evening. . 0 03/01/2022 Discontinued (Patient's Request) diazePAM 5 mg oral tablet (8 sources) Benzodiazepine Start: 09-05-2021 diazePAM (VALIUM) 5 MG tablet Indications: Varicose veins of left lower extremity with pain , Venous insufficiency 1 tablet at bedtime on 09/05/21; 1 tablet at 8:45 am on 09/06/21 Start: 09/05/21. 2 tablet 0 09/05/2021 Active Completed/Discontinued Medications Medication Drug Class(es) Dates Sig (Normalized) Sig (Original) FLUoxetine 20 mg oral capsule (3 sources) Serotonin Reuptake Inhibitor End: 05-10-2021 take 1 capsule by mouth once daily FLUoxetine (PROZAC) 20 MG capsule Take 20 mg by mouth daily . 0 05/10/2021 Discontinued (Discontinued by another clinician) Problems Active Problems Problem Classification Problem Date Documented Date Episodic/Chronic Other circulatory disease (7 sources) Spider nevus; Translations: [Nevus, non-neoplastic] Onset: 03-01-2022 Episodic Other circulatory disease (2 sources) Personal history of other diseases of the circulatory system; Translations: [Personal history of other diseases of the circulatory system] Onset: 05-31-2022 Episodic Other nutritional; endocrine; and metabolic disorders (5 sources) Obese class I; Translations: [Obesity, unspecified] Onset: 03-01-2022 Chronic Other nutritional; endocrine; and metabolic disorders (2 sources) Obesity, unspecified; Translations: [Obesity, unspecified] Onset: 03-01-2022 Chronic Residual codes; unclassified (2 sources) Past history of procedure; Translations: [Other specified postprocedural states] Onset: 05-31-2022 Episodic Residual codes; unclassified (2 sources) Other specified postprocedural states; Translations: [Other specified postprocedural states] Onset: 05-31-2022 Episodic Unclassified (2 sources) 27 weeks gestation of ; Translations: [25 weeks gestation of ] Onset: 03-19-2017 Unclassified (1 source) Unknown / UNK(Unknown) Onset: 01-17-2017 Past or Other Problems Problem Classification Problem Date Documented Date Episodic/Chronic Diabetes or abnormal glucose tolerance complicating ; childbirth; or the puerperium (1 source) Abnormal glucose complicating ; Translations: [Abnormal glucose complicating ] Onset: 04-19-2017 Episodic Immunizations and screening for infectious disease (1 source) Encounter for immunization; Translations: [Encounter for immunization] Onset: 04-05-2017 Episodic Normal and/or delivery (1 source) Encounter for supervision of normal first , second trimester; Translations: [Encounter for supervision of normal first , second trimester] Onset: 03-19-2017 Episodic Other circulatory disease (2 sources) Nevus, non-neoplastic; Translations: [Nevus, non-neoplastic] Onset: 03-01-2022 Episodic Other diseases of veins and lymphatics (11 sources) Vascular insufficiency; Translations: [Venous insufficiency (chronic) (peripheral)] Onset: 10-27-2021 Episodic Other diseases of veins and lymphatics (2 sources) Venous insufficiency (chronic) (peripheral); Translations: [Venous insufficiency (chronic) (peripheral)] Onset: 10-27-2021 Episodic Varicose veins of lower extremity (20 sources) Varicose veins of lower extremity; Translations: [Varicose veins of bilateral lower extremities with pain] Onset: 02-06-2021 Episodic Results Test Name Value Interpretation Reference Range Facil ity Vital Signs Date Time Vital Sign Value Performing Clinician Facradha litrianna 05-31-2022 08:09-0500 Diastolic blood pressure 80 mm[Hg] W. Craske III, DO Work Phone: [facility] 05-31-2022 08:09-0500 Heart rate 59 /min W. Craske III, DO Work Phone: [facility] 05-31-2022 08:09-0500 Systolic blood pressure 130 mm[Hg] W. Craske III, D O Work Phone: [facility] 05-31-2022 08:05-0500 Body height 170.2 cm W. Craske III, DO Work Phone: [facility] 05-31-2022 08:05-0500 Body mass index (BMI) [Ratio] 29.6 kg/m2 W. Craske III, DO Work Phone: [facility] 05-31-2022 08:05-0500 Body weight 85.73 kg W. Craske III, DO Work Phone: [facility] 03-01-2022 08:30-0400 Diastolic blood pressure 74 mm[Hg] W. Craske III, DO Work Phone: [facility] 03-01-2022 08:30-0400 Heart rate 65 /min W. Craske III, DO Work Phone: [facility] 03-01-2022 08:30-0400 Systolic blood pressure 107 mm[Hg] W. Craske III, D O Work Phone: [facility] 03-01-2022 08:23-0400 Body height 170.2 cm W. Craske III, DO Work Phone: [facility] 03-01-2022 08:23-0400 Body mass index (BMI) [Ratio] 30.7 kg/m2 W. Craske III, DO Work Phone: [facility] 03-01-2022 08:23-0400 Body weight 88.91 kg W. Craske III, DO Work Phone: [facility] 11-20-2021 13:12-0400 Diastolic blood pressure 79 mm[Hg] Nyoka Fauser LOOM INSPECTOR Work Phone: [facility] 11-20-2021 13:12-0400 Heart rate 60 /min Nyoka Fauser LOOM INSPECTOR Work Phone: [facility] 11-20-2021 13:12-0400 Systolic blood pressure 128 mm[Hg] Nyoka Fauser LOOM INSPECTOR Work Phone: [facility] 11-20-2021 13:11-0400 Body height 170.2 cm Nyoka Fauser LOOM INSPECTOR Work Phone: [facility] 11-20-2021 13:11-0400 Body mass index (BMI) [Ratio] 33.36 kg/m2 Nyoka Fauser LOOM INSPECTOR Work Phone: [facility] 11-20-2021 13:11-0400 Body weight 96.62 kg Nyoka Fauser LOOM INSPECTOR Work Phone: [facility] 05-10-2021 13:58-0400 Diastolic blood pressure 77 mm[Hg] W. Craske III, DO Work Phone: [facility] 05-10-2021 13:58-0400 Heart rate 66 /min W. Craske III, DO Work Phone: [facility] 05-10-2021 13:58-0400 Systolic blood pressure 116 mm[Hg] W. Craske III, D O Work Phone: [facility] 05-10-2021 13:56-0400 Body height 170.2 cm W. Craske III, DO Work Phone: [facility] 05-10-2021 13:56-0400 Body mass index (BMI) [Ratio] 33.16 kg/m2 W. Craske III, DO Work Phone: [facility] 05-10-2021 13:56-0400 Body weight 96.03 kg W. Craske III, DO Work Phone: [facility] 05-10-2021 13:56-0400 Respiratory rate 16 /min Char Craneske III, DO Work Phone: [facility] 02-06-2021 13:19-0400 Body height 170.2 cm Char Craneske III, DO Work Phone: [facility] 02-06-2021 13:19-0400 Body mass index (BMI) [Ratio] 33.41 kg/m2 Char Craneske III, DO Work Phone: [facility] 02-06-2021 13:19-0400 Body weight 96.75 kg Char Craneske III, DO Work Phone: [facility] 02-06-2021 13:19-0400 Diastolic blood pressure 67 mm[Hg] Char Craneske III, DO Work Phone: [facility] 02-06-2021 13:19-0400 Heart rate 55 /min Char Cranemahade III, DO Work Phone: [facility] 02-06-2021 13:19-0400 SaO2% (BldA) [Mass fraction] 99 % Char Craneske III, DO Work Phone: [facility] 02-06-2021 13:19-0400 Systolic blood pressure 116 mm[Hg] Char Zamudio III, D O Work Phone: [facility] Encounters Encounter Date Encounter Type Care Provider Facility Start: 05-31-2022 End: 05-31-20[facility]: 05-31-2022 End: 05-31-2022 Office outpatient visit 10 minutes WRyan Kaur Robb DO Work Phone: [facility] Procedures Date Procedure Procedure Detail Performing Clinician Start: 03-01-2022 H/O: surgery History of prior ablation treatment Char Cranebing DO Work Phone: H/O: surgery History of prior ablation treatment Hanna Webber RN History of radiation therapy Status post endovenous radiofrequency ablation (RFA) of saphenous vein Hanna Webber RN Plan of Treatment Date Care Activity Detail Author Start: 03-11-2029 Tetanus vaccination Tetanus: Every 10yrs [facility] Start: 05-03-2022 End: 05-03-2022 Patient encounter procedure 05/03/2022 Procedure visit Cardiology Char Zamudio III, DO [address] [facility] [place] [address] [facility] Start: 05-03-2022 End: 03-01-2023 SCLEROTHERAPY SCLEROTHERAPY Procedures Routine Symptomatic reticular veins Spider veins Asymptomatic varicose veins of left lower extremity Expected: 05/03/2022, Expires: 03/01/2023 [facility] Work Phone: Payers Date Payer Category Payer Medicaid [id number] 2021 Medicaid [id number]. [id number] 2021 Medicaid [id number] 2021 Medicaid [id number] 2020 Unknown [id number] 1991 Unknown [id number] 2.16. [id number] 1991 Unknown [id number] 2.16. [id number] 1991 Unknown [id number] 2.16. [id number] 1991 Unknown [id number] 2.16. [id number] 1991 Unknown [id number] 2.16. [id number] 1991 Unknown [id number] 2.16. [id number] 1991 Unknown [id number] 2.16. [id number] 1991 Unknown [id number] 2.16. [id number] 1991 Unknown [id number] 2.16. [id number] 1991 Unknown [id number] 2.16. [id number] Social History Date Type Detail Facility Start: 02-03-2021 End: 02-06-2021 Tobacco smoking status NHIS Never smoker [facility] Start: 02-03-2021 End: 05-31-2022 Tobacco use and exposure Never used [facility] Start: 1990 Sex Assigned At Not on file [facility] Start: 10-17-2021 End: 05-31-2022 Exposure to SARS-CoV-2 (event) Not sure [facility] Start: 05-10-2021 End: 05-31-2022 Tobacco smoking status [facility] Occasional tobacco smoker [facility] Start: 05-10-2021 End: 05-31-2022 Alcohol intake Current drinker of alcohol (finding) [facility] Start: 05-10-2021 History SDOH Alcohol Comment occasional [facility] History of tobacco use Cigarette Smoker [facility] Start: 03-01-2022 Tobacco Comment Once a week [facility] Start: 05-31-2022 Tobacco Comment 2-3 cig a week [facility] Clinical Notes 02-06-2021 to 05-31-2022 WRyan Zamudio III, DO - 05/31/2022 8:05 AM ESTPatient InstructionsWRyan Zamudio III, DO - 03/01/2022 8:29 AM EDTPatient InstructionsNicola Gonzalez, LOOM INSPECTOR - 11/20/2021 1:14 PM EDTPatient Instructions Note Date & Type Note Facility 05-31-2022 History of Presen t illness Narrative Assessment & Plan: 1. Symptomatic reticular veins 2. Spider veins 3. S/P sclerotherapy of varicose veins Plan: At the present time, Mrs. Carcamo is doing quite well status post sclerotherapy of her reticular and spider veins of the left lower extremity. She does have some thrombosis of the reticular veins with some hematoma present, but she has satisfactory resolution of her pain symptomatology and discomfort. As stated, she does have some superficial cords where the thrombosis occurred within the veins which will resolve over time. I recommended some moist heat periodically during the day to help encourage breakdown of the thrombus, but there is no evidence of need for anticoagulation. I recommend that she continue with her knee-high compression stockings on a daily basis. We will see her on an as-needed basis. If any questions or concerns, she is to contact us. We will keep you informed, and we appreciate the opportunity to participate in her care. Follow Up Ordered: Return if symptoms worsen or fail to improve. Subjective: Hailey Carcamo is a 32 y.o. female seen in the office today for follow up regarding symptomatic reticular varicose veins and spider veins of the left lower extremity. Mrs. Carcamo (birthday 1990) was seen in the [place] office on May 31, 2022. It has been approximately 1 month since she underwent sclerotherapy of left lower leg anterior tibial reticular varicose veins and spider veins. She tolerated the procedure well. She states that her leg feels much better since the sclerotherapy occurred. She does have some firmness at the injection sites, but overall is very happy with her present clinical condition. She has been using her compression stockings regularly and does feel that they help. Histories: Past Medical History: Diagnosis Date Spider veins Varicose veins of leg with pain, left Past Surgical History: Procedure Laterality Date SECTION 2019 RADIOFREQUENCY VENOUS ABLATION LT GREATER SAPHENOUS VEIN Left 10/27/2021 Dr Zamudio Family History Problem Relation Age of Onset Asthma Father Diabetes Maternal Grandmother Hypertension Maternal Grandmother Heart disease Maternal Grandfather Social History Tobacco Use Smoking status: Some Days Years: 1.00 Types: Cigarettes Smokeless tobacco: Never Tobacco comments: 2-3 cig a week Vaping Use Vaping Use: Never used Substance Use Topics Alcohol use: Yes Comment: occasional Drug use: Never Current Outpatient Medications Medication Sig Dispense Refill ALPRAZolam (XANAX) 0.5 MG tablet take 1 tablet by mouth twice a day if needed for anxiety for 8 days DULoxetine (CYMBALTA) 60 MG capsule Take 1 (one) capsule (60 mg total) by mouth daily . multivitamin (THERAGRAN) per tablet Take 1 (one) tablet by mouth daily . diazePAM (VALIUM) 5 MG tablet 1 tablet at bedtime on 09/05/21; 1 tablet at 8:45 am on 09/06/21 Start: 09/05/21. (Patient not taking: Reported on 11/20/2021 .) 2 tablet 0 No current facility-administered medications for this visit. No Known Allergies ROS Objective: Vitals: Vitals: 05/31/22 0805 05/31/22 0809 BP: 119/77 130/80 BP Location: Right arm Left arm Patient Position: Sitting Sitting Pulse: 68 (!) 59 Weight: 85.7 kg (189 lb) Height: 5' 7 Physical Exam Vitals reviewed. Constitutional: General: She is awake. Appearance: Normal appearance. She is well-developed. She is obese. HENT: Head: Normocephalic. Eyes: General: Lids are normal. Neck: Vascular: No JVD. Cardiovascular: Rate and Rhythm: Normal rate and regular rhythm. Pulses: Intact distal pulses. Heart sounds: Normal heart sounds. No murmur heard. Comments: Right leg has reticular varicose veins and quaternary varicose veins right anterior tibia with a couple scattered spider vein complexes. The veins measure 0.2 to 2 mm in maximum diameter. The left leg has no secondary, tertiary, quaternary varicose veins from the medial left mid thigh. Left medial calf puncture site is intact and healed well. She has quaternary and tertiary varicose veins left lateral distal thigh running lateral to the knee, but without clot, cord, rope are noted. They measure 3 to 5 mm in maximum diameter. The left anterior tibial ridge reticular varicose vein and spider vein complexes thrombosed. There is a firm cord palpable at the injection site as well as surrounding feeder spider veins. The left lateral proximal calf reticular vein site also has a cord consistent with successful thrombosis due to sclerotherapy. No erythema, infection, cellulitis is noted. No tenderness is noted to palpation. Pulmonary: Effort: Pulmonary effort is normal. Abdominal: General: Abdomen is protuberant. Palpations: Abdomen is not rigid. Comments: Limited exam due to body habitus and obesity. Musculoskeletal: General: Normal range of motion. Cervical back: Neck supple. Skin: General: Skin is warm and dry. Capillary Refill: Capillary refill takes less than 2 seconds. Nails: There is no clubbing. Neurological: General: No focal deficit present. Mental Status: She is alert and oriented to person, place, and time. Motor: Motor function is intact. Coordination: Coordination is intact. Gait: Gait is intact. Psychiatric: Attention and Perception: Attention and perception normal. Mood and Affect: Mood and affect normal. Speech: Speech normal. Behavior: Behavior normal. Behavior is cooperative. Thought Content: Thought content normal. documented in this encounter [facility] 05-31-2022 Instructions Irina Goetz MA - 05/31/2022 8:04 AM EST How to contact your Care Team: Providers: DO Nicola Pearl III, CNP Jill Bender, PA Nurse: Alena Webber RN To reschedule office appointments call Scheduling [phone] In case of an emergency please call 911. When in need of refills please call the phone number listed above. Please include medication name, pharmacy name and specify 30 or 90 day supply Please check with your pharmacy within 24 hours of your request for refill. You must follow up as directed to continue current refills. Thank you! documented in this encounter [facility] 03-01-2022 History of Presen t illness Narrative Assessment & Plan: 1. Symptomatic reticular veins 2. Spider veins 3. Asymptomatic varicose veins of left lower extremity 4. History of prior ablation treatment 5. Obesity (BMI 30.0-34.9) Plan: At the present time, Mrs. Carcamo does have some symptomatic reticular veins and spider veins in the left lower leg. She continues to have some soreness and tenderness especially when she is on her feet. She is using thigh-high compressions on a regular daily basis, but continues to have symptoms. She says her leg feels so much better since she had a venous ablation performed several months ago, but is very concerned regarding the spider veins and reticular vein complex in the left lower leg. I discussed with her the risks potential complications, benefits and drawbacks, advantages and disadvantages as well as cost issues regarding sclerotherapy. She understands this and wants to move ahead with scheduling sclerotherapy in April 2022. She does have some lateral thigh varicosities which have not resolved from her ablation, but they are relatively asymptomatic, so we will not address those at this point in time. We will keep you informed, and we appreciate the opportunity to participate in her care. Follow Up Ordered: Return for Left lower leg sclerotherapy in April 2022. Subjective: Hailey Carcamo is a 31 y.o. female seen in the office today for follow up regarding reticular varicose veins and spider veins left lower leg. Mrs. Carcamo (birthday [id number]) was seen in the [place] office on March 01, 2022. She is approxi-3 months since he was seen by my nurse practitioner status post venous ablation of her left great saphenous vein. She states that she is doing well since she had a venous ablation. 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 She denies any bleeding or thrombosis. She does still complain of some tenderness and soreness of the left anterior tibial spider veins and reticular varicose vein complex which is rather prominent. 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 She also has some lateral thigh varicosities which she is concerned about the appearance, but denies any pain or bleeding or thrombotic changes in the varicose vein. Histories: Past Medical History: Diagnosis Date Spider veins Varicose veins of leg with pain, left Past Surgical History: Procedure Laterality Date SECTION 2019 RADIOFREQUENCY VENOUS ABLATION LT GREATER SAPHENOUS VEIN Left 10/27/2021 Dr Zamudio Family History Problem Relation Age of Onset Asthma Father Diabetes Maternal Grandmother Hypertension Maternal Grandmother Heart disease Maternal Grandfather Social History Tobacco Use Smoking status: Some Days Years: 1.00 Types: Cigarettes Smokeless tobacco: Never Tobacco comments: Once a week Vaping Use Vaping Use: Never used Substance Use Topics Alcohol use: Yes Comment: occasional Drug use: Never Current Outpatient Medications Medication Sig Dispense Refill multivitamin per tablet Take 1 (one) tablet by mouth daily . diazePAM (VALIUM) 5 MG tablet 1 tablet at bedtime on 09/05/21; 1 tablet at 8:45 am on 09/06/21 Start: 09/05/21. (Patient not taking: Reported on 11/20/2021 .) 2 tablet 0 No current facility-administered medications for this visit. No Known Allergies ROS Objective: Vitals: Vitals: 03/01/22 0823 03/01/22 0830 BP: 115/68 107/74 BP Location: Right arm Left arm Patient Position: Sitting Sitting Pulse: 68 65 Weight: 88.9 kg (196 lb) Height: 5' 7 Physical Exam Vitals reviewed. Constitutional: General: She is awake. Appearance: Normal appearance. She is well-developed. She is obese. HENT: Head: Normocephalic. Eyes: General: Lids are normal. Neck: Vascular: No JVD. Cardiovascular: Rate and Rhythm: Normal rate and regular rhythm. Pulses: Intact distal pulses. Heart sounds: Normal heart sounds. No murmur heard. Comments: Right leg has reticular varicose veins and quaternary varicose veins right anterior tibia with a couple scattered spider vein complexes. The veins measure 0.2 to 2 mm in maximum diameter. The left leg has no secondary, tertiary, quaternary varicose veins from the medial left mid thigh. Left medial calf puncture site is intact and healed well. She has quaternary and tertiary varicose veins left lateral distal thigh running lateral to the knee, but without clot, cord, rope are noted. They measure 3 to 5 mm in maximum diameter. The left anterior tibial ridge has a spider vein and reticular vein complex in the midportion with surrounding feeder spider veins measuring 0.1 to 0.2 mm. The vein complex itself is approximately 10 mm in diameter with some mild reflux cutaneously. No clots, cords, ropes are noted. It is mildly tender to palpate. Pulmonary: Effort: Pulmonary effort is normal. Abdominal: General: Abdomen is protuberant. Palpations: Abdomen is not rigid. Comments: Limited exam due to body habitus and obesity. Musculoskeletal: General: Normal range of motion. Cervical back: Neck supple. Skin: General: Skin is warm and dry. Capillary Refill: Capillary refill takes less than 2 seconds. Nails: There is no clubbing. Neurological: General: No focal deficit present. Mental Status: She is alert and oriented to person, place, and time. Motor: Motor function is intact. Coordination: Coordination is intact. Gait: Gait is intact. Psychiatric: Attention and Perception: Attention and perception normal. Mood and Affect: Mood and affect normal. Speech: Speech normal. Behavior: Behavior normal. Behavior is cooperative. Thought Content: Thought content normal. documented in this encounter [facility] 03-01-2022 Instructions Irina Goetz MA - 03/01/2022 8:23 AM EDT How to contact your Care Team: Providers: DO Nicola Pearl III, CNP Jill Bender, PA Nurse: Alena Webber RN To reschedule office appointments call Scheduling [phone] In case of an emergency please call 911. When in need of refills please call the phone number listed above. Please include medication name, pharmacy name and specify 30 or 90 day supply Please check with your pharmacy within 24 hours of your request for refill. You must follow up as directed to continue current refills. Thank you! documented in this encounter [facility] 11-20-2021 Evaluation + Plan note Associ ated Problem(s): Venous insufficiency Hailey has history of painful varicosities left lower extremities with venous insufficiency. She is now approximately 3 weeks post endovenous ablation left lower extremity. She admits that her symptoms have greatly improved. Her only complaint is some stiffness to the left lower extremity when she sits for long periods of time. She does complain of a cluster of spider veins to the anterior aspect left lower leg. She admits that she has spoke to Dr. Zamudio about this in the past regarding potential sclerotherapy. 10/27/2021 Ultrasound-guided endovenous transcatheter radiofrequency ablation of the left great saphenous vein by Dr Zamudio -We will see her back in approximately [address] Zamudio to discuss sclerotherapy [facility] 11-20-2021 Miscellaneous Notes Associate d Problem(s): Venous insufficiency Hailey has history of painful varicosities left lower extremities with venous insufficiency. She is now approximately 3 weeks post endovenous ablation left lower extremity. She admits that her symptoms have greatly improved. Her only complaint is some stiffness to the left lower extremity when she sits for long periods of time. She does complain of a cluster of spider veins to the anterior aspect left lower leg. She admits that she has spoke to Dr. Zamudio about this in the past regarding potential sclerotherapy. 10/27/2021 Ultrasound-guided endovenous transcatheter radiofrequency ablation of the left great saphenous vein by Dr Zamudio -We will see her back in approximately [address] Zamudio to discuss sclerotherapy documented in this encounter [facility] 11-20-2021 History of Presen t illness Narrative Images from the original note were not included. VASCULAR MEDICINE CLINIC NOTE Patient Name: Hailey Carcamo MR #: [id number] : 1990 Physicians: Ursula Foster MD (Family); No ref. provider found (Referring) Assessment and Plan: Venous insufficiency Hailey has history of painful varicosities left lower extremities with venous insufficiency. She is now approximately 3 weeks post endovenous ablation left lower extremity. She admits that her symptoms have greatly improved. Her only complaint is some stiffness to the left lower extremity when she sits for long periods of time. She does complain of a cluster of spider veins to the anterior aspect left lower leg. She admits that she has spoke to Dr. Zamudio about this in the past regarding potential sclerotherapy. 10/27/2021 Ultrasound-guided endovenous transcatheter radiofrequency ablation of the left great saphenous vein by Dr Zamudio -We will see her back in approximately [address] Zamudio to discuss sclerotherapy History of Present Illness: I had the pleasure to see Hailey Carcamo who is a 31 y.o. female with a past medical history as outlined below. Hailey Carcamo presents today on 11/20/2021 in the Vascular clinic for post procedure follow up. She admits to occasional stiffness to the medial aspect of the left lower extremity. When she is up ambulating the left lower extremity symptoms have greatly improved. She just arrived back from [place] yesterday. 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 She does have spider veins present to the anterior aspect left lower leg that she is discussed sclerotherapy with Dr. Baez in the past. Patient denies complaints of chest pain, SOB, abdominal pain, lightheadedness, dizziness. They have had no syncope or TIA/CVA type symptoms. Patient denies claudication or BLE rest pain. History: Past Medical History: Diagnosis Date Spider veins Varicose veins of leg with pain, left Past Surgical History: Procedure Laterality Date SECTION 2019 RADIOFREQUENCY VENOUS ABLATION LT GREATER SAPHENOUS VEIN Left 10/27/2021 Dr Zamudio Family History Problem Relation Age of Onset Asthma Father Diabetes Maternal Grandmother Hypertension Maternal Grandmother Heart disease Maternal Grandfather Social History Socioeconomic History Marital status: Tobacco Use Smoking status: Current Some Day Smoker Smokeless tobacco: Never Used Tobacco comment: occasional Vaping Use Vaping Use: Never used Substance and Sexual Activity Alcohol use: Yes Comment: occasional Drug use: Never Allergy Information: I have reviewed the patient's allergies. Patient has no known allergies. Home Medications: Current Outpatient Medications Medication Sig Dispense Refill azelaic acid (FINACEA) 15 % gel Apply topically 2 (two) times a day After skin is thoroughly washed and patted dry, gently but thoroughly massage a thin film of azelaic acid cream into the affected area twice daily, in the morning and evening. . diazePAM (VALIUM) 5 MG tablet 1 tablet at bedtime on 09/05/21; 1 tablet at 8:45 am on 09/06/21 Start: 09/05/21. (Patient not taking: Reported on 11/20/2021 .) 2 tablet 0 No current facility-administered medications for this visit. Review of Systems: Review of Systems Constitutional: Negative for diaphoresis, malaise/fatigue, weight gain and weight loss. HENT: Negative for hearing loss, nosebleeds and tinnitus. Eyes: Negative for blurred vision and visual disturbance. Cardiovascular: Negative for chest pain, claudication, cyanosis, dyspnea on exertion, irregular heartbeat, leg swelling, near-syncope, orthopnea, palpitations, paroxysmal nocturnal dyspnea and syncope. Respiratory: Negative for hemoptysis, shortness of breath and snoring. Endocrine: Negative for cold intolerance and heat intolerance. Hematologic/Lymphatic: Does not bruise/bleed easily. Skin: Negative for flushing, poor wound healing and rash. Musculoskeletal: Negative for arthritis, back pain, joint pain, muscle weakness and myalgias. Gastrointestinal: Negative for abdominal pain, change in bowel habit, melena, nausea and vomiting. Genitourinary: Positive for nocturia (once nightly). Negative for dysuria and hematuria. Neurological: Negative for dizziness, headaches, light-headedness, loss of balance, numbness and paresthesias. Psychiatric/Behavioral: Positive for depression, memory loss (ptsd) and substance abuse (nicotine - socially). The patient is nervous/anxious. Physical Examination: Vital Signs: BP 128/79 (BP Location: Left arm, Patient Position: Sitting, BP Cuff Size: Adult) Pulse 60 Ht 5' 7 Wt 96.6 kg (213 lb) BMI 33.36 kg/m Physical Exam Physical Exam Vitals and nursing note reviewed. Constitutional: Appearance: Normal appearance. HENT: Head: Normocephalic. Eyes: General: Lids are normal. Cardiovascular: Rate and Rhythm: Normal rate and regular rhythm. Pulses: Dorsalis pedis pulses are 2+ on the right side and 2+ on the left side. Posterior tibial pulses are 2+ on the right side and 2+ on the left side. Heart sounds: No murmur heard. Pulmonary: Effort: No respiratory distress. Breath sounds: No decreased breath sounds, wheezing, rhonchi or rales. Skin: General: Skin is warm and dry. Neurological: Mental Status: She is alert and oriented to person, place, and time. Psychiatric: Behavior: Behavior is not agitated. Approximately 30 minutes was spent [id number], reviewing chart, and writing notes. More than 50% of this time was spent counseling and coordinating care with the patient. Thank you for allowing me to participate in Hailey Carcamo's care. Should you have any questions regarding their management please do not hesitate to contact me. documented in this encounter [facility] 11-20-2021 Instructions Mason Chavez MA - 11/20/2021 1:12 PM EDT How to contact your Care Team: Providers: DO Nicola Pearl III, CNP Jill Bender, PA Nurse: Alena Webber RN To reschedule office appointments call Scheduling [phone] In case of an emergency please call 911. When in need of refills please call the phone number listed above. Please include medication name, pharmacy name and specify 30 or 90 day supply Please check with your pharmacy within 24 hours of your request for refill. You must follow up as directed to continue current refills. Thank you! documented in this encounter [facility] 10-27-2021 History of Presen t illness Narrative ULTRASOUND-GUIDED TRANSCATHETER ENDOVENOUS GREAT SAPHENOUS VEIN RADIOFREQUENCY ABLATION PATIENT: Hailey Carcamo DATE: 10/27/2021 PHYSICIAN: Chra Zamudio III, DO The patient was counseled at length regarding Ultrasound-Guided Transcatheter Great Saphenous Vein ablation and the risks, benefits and alternatives of this surgery. The risks of surgery were explained to the patient to include, but not limited to, bleeding, infection, pain, swelling, numbness, tingling, induration, scarring, bruising, and rare instances of deep vein thrombosis. The patient understands the seriousness of the situation and would like to proceed with surgery. All questions were answered. Informed consent was obtained and information was given to the patient and/or guardian. PREOPERATIVE DIAGNOSIS: Left great saphenous severe insufficiency with reflux. POSTOPERATIVE DIAGNOSIS: Left great saphenous severe insufficiency with reflux. PRINCIPAL PROCEDURE: Ultrasound-guided endovenous transcatheter radiofrequency ablation of the left great saphenous vein. SURGEON: Char Zamudio III, DO ANESTHESIA: 1% lidocaine local anesthetic and tumescent anesthesia. REASON FOR PROCEDURE: This is a 31 y.o. female who presents with great saphenous vein reflux of the left lower extremity with pain and varicose veins PROCEDURE: The patient was brought to the procedure room and placed in the supine position. Pre-procedure ultrasound of the great saphenous vein was performed that confirmed patency of the greater saphenous vein. The great saphenous vein was marked under ultrasound-guidance. EMLA cream was applied to the skin overlying the Great Saphenous vein for approximately 30 minutes, the cleaned off. The left lower extremity was prepped and draped in the usual fashion. 1% lidocaine was used to provide a local block of the areas of the entry. Using a micropuncture technique, the great saphenous vein was percutaneously accessed at the proximal calf under ultrasound guidance. A J-wire was inserted through the needle into the vein under ultrasound guidance. The needle was removed. A skin wilman at the guidewire site was made with an 11 blade scalpel. A 7 Fijian sheath was then placed into the vein under ultrasound-guidance over the wire. The ClosureFast radiofrequency catheter was flushed with saline and was passed through the sheath to the level of the saphenofemoral junction. Under ultrasound-guidance, the position of the catheter and sheath were confirmed to be 1.5 cm distal to the saphenofemoral junction and the superficial epigastric vein. The catheter was not within the common femoral vein. A standard mixture of tumescent anesthesia was used to infuse the length of the great saphenous vein of approximately 500mL under direct ultrasound-guidance. Using a standard pull back technique, the radiofrequency catheter was used to ablate the great saphenous vein without incident. Immediate follow-up ultrasound duplex was performed to confirm successful ablation of the greater saphenous vein without compromise of the common femoral vein. The radiofrequency catheter and sheath were then removed without incident. Hemostasis was obtained at the entry site in the proximal calf with a sterile dressing. Compression of the extremity was performed using thigh high 20-30 mm compression stockings. The patient tolerated the procedure well and was ambulated out of the office in stable condition. Discharge and followup instructions were given to . The number of treatment cycles was 14. The duration of ablation time was 4:40 minutes. The length of the saphenous vein that was ablated was 45 cm. Char Zamudio III, DO documented in this encounter [facility] 05-10-2021 Instructions Hanna Webber RN - 05/10/2021 1:53 PM EDT How to contact your Care Team: Providers: DO Nicola Pearl III, CNP Nurse: Alena Webber RN To reschedule office appointments call Scheduling [phone] In case of an emergency please call 911. When in need of refills please call the phone number listed above. Please include medication name, pharmacy name and specify 30 or 90 day supply Please check with your pharmacy within 24 hours of your request for refill. You must follow up as directed to continue current refills. Thank you! documented in this encounter [facility] 05-10-2021 History of Presen t illness Narrative Assessment & Plan: 1. Venous insufficiency 2. Varicose veins of left lower extremity with pain Plan: At the present time, Mrs. Carcamo continues to have discomfort and pain of the left leg due to her varicose veins despite wearing thigh-high compression stockings on a regular basis. She states there is minimal improvement, but continues have significant aching and throbbing and heaviness of the left leg compared to the right leg. Venous duplex scan does show superficial venous insufficiency of the left great saphenous vein from the saphenofemoral junction to the knee as well as large side branches. From my perspective, I feel that she has significant component of venous reflux and venous insufficiency which is playing a role regarding her symptoms. I discussed with her the opportunity for venous intervention such as a venous ablation versus conservative therapy. At the present time, she states that there is not been significant enough improvement with her stocking usage that she sees any changes in the future, therefore she wants to move ahead with venous ablation. I discussed with her the risks and potential complications, and she wants to see what insurance coverage can be obtained for venous ablation. As result, I recommended she continue with her thigh-high compression stockings on a daily basis. We will see what insurance coverage can be obtained for venous ablation and she has been using thigh-high stockings for least 3 months. Once we get insurance approval, then we will discuss timing for venous ablation of her left great saphenous vein. We will keep you informed, and we appreciate the opportunity to participate in her care. Follow Up Ordered: Return for Left great saphenous vein ablation pending insurance approval.. Subjective: Hailey Carcamo is a 31 y.o. female seen in the office today for follow up regarding painful varicose veins of the legs with spider veins. Mrs. Carcamo (birthday 1990) was seen in the office on May 10, 2021. It has been approxi-3 months since she was seen last. She has known history of varicose veins primarily the left leg. She states that her left leg has been much more symptomatic than her right leg. She has been using thigh-high compression stockings on a regular basis for the last 3 months. She continues to have discomfort and pain. There is some minimal improvement with swelling, but she continues to have achiness and heaviness and fatigue of venous insufficiency and valvular incompetency. She did undergo venous duplex scan with insufficiency testing the office today prior to seeing me which showed no evidence of DVT, but positive superficial venous reflux of the left great saphenous vein at the saphenofemoral junction. She has not had any ulcers or tissue loss of present time, but she does have a reticular vein feeding a spider vein complex in the anterior tibial ridge which is causing her some pain, as well. Histories: Past Medical History: Diagnosis Date Spider veins Varicose veins of leg with pain, left Past Surgical History: Procedure Laterality Date SECTION 2019 Family History Problem Relation Age of Onset Asthma Father Diabetes Maternal Grandmother Hypertension Maternal Grandmother Heart disease Maternal Grandfather Social History Tobacco Use Smoking status: Current Some Day Smoker Smokeless tobacco: Never Used Tobacco comment: occasional Substance Use Topics Alcohol use: Yes Comment: occasional Drug use: Never Current Outpatient Medications Medication Sig Dispense Refill azelaic acid (FINACEA) 15 % gel Apply topically 2 (two) times a day After skin is thoroughly washed and patted dry, gently but thoroughly massage a thin film of azelaic acid cream into the affected area twice daily, in the morning and evening. . No current facility-administered medications for this visit. No Known Allergies ROS Objective: Vitals: Vitals: 05/10/21 1356 05/10/21 1358 BP: 127/76 116/77 BP Location: Right arm Left arm Patient Position: Sitting Sitting BP Cuff Size: Adult Adult Pulse: (!) 58 66 Resp: 16 Weight: 96 kg (211 lb 11.2 oz) Height: 5' 7 Physical Exam Vitals reviewed. Constitutional: General: She is awake. Appearance: Normal appearance. She is well-developed. She is obese. HENT: Head: Normocephalic. Eyes: General: Lids are normal. Neck: Vascular: No JVD. Cardiovascular: Rate and Rhythm: Normal rate and regular rhythm. Pulses: Intact distal pulses. Heart sounds: Normal heart sounds. No murmur heard. Comments: Right leg has reticular varicose veins and quaternary varicose veins right anterior tibia with a couple scattered spider vein complexes. The veins measure 0.2 to 2 mm in maximum diameter. The left leg has secondary, tertiary, quaternary varicose veins from the medial left mid thigh running anteriorly over the thigh to the lateral knee area and a very tortuous pattern. It measures 4 to 6 mm in diameter. It runs then lateral to the tibial ridge and then the anterior tibial ridge has a varicose vein complex measuring 4 to 6 mm without clot, cord, rope. The vein appears to be a branch off the great saphenous vein, rather than the anterior saphenous vein. Pulmonary: Effort: Pulmonary effort is normal. Abdominal: General: Abdomen is protuberant. Palpations: Abdomen is not rigid. Comments: Limited exam due to body habitus and obesity. Musculoskeletal: General: Normal range of motion. Cervical back: Neck supple. Skin: General: Skin is warm and dry. Capillary Refill: Capillary refill takes less than 2 seconds. Nails: There is no clubbing. Neurological: General: No focal deficit present. Mental Status: She is alert and oriented to person, place, and time. Motor: Motor function is intact. Coordination: Coordination is intact. Gait: Gait is intact. Psychiatric: Attention and Perception: Attention and perception normal. Mood and Affect: Mood and affect normal. Speech: Speech normal. Behavior: Behavior normal. Behavior is cooperative. Lab Review: The following labs were reviewed and within the chart Normal lower extremity venous duplex scan with insufficiency testing performed in the office on May 10, 2021 indicates no evidence of deep or superficial venous thrombosis in bilateral lower extremities. The right leg shows no evidence of deep or superficial venous reflux. The left leg shows no evidence of deep venous reflux. There is superficial venous insufficiency of the left great saphenous vein from the saphenofemoral junction to the knee. There is also noted to be a large side branch in the mid thigh off the great saphenous vein. There are multiple branches noted in the left calf. There is no evidence of small saphenous vein reflux in the left leg. documented in this encounter [facility] 02-06-2021 History of Presen t illness Narrative Assessment & Plan: 1. Varicose veins of both lower extremities with pain Ultrasound venous insufficiency exam Plan: At the present time, Mrs. Carcamo does have symptomatic varicose veins. She had tried old compression stockings (from her grandmother) in the past when the weather was cooler, but is not been using them regularly with the heat of summer. As a result, we will get her a prescription for new 20 to 30 mm gradient compression stockings (thigh-high or pantyhose length) to be worn on a daily basis. I do not see any evidence of acute thrombotic changes, so I think continued conservative course is indicated. We will see her back in the office in 3 months to give her a good trial of conservative therapy, as well as meet insurance criteria for more conservative management prior to interventional therapies. Will obtain a venous duplex scan with insufficiency testing to determine any valvular incompetence and determine what treatment options may be available. We will keep you informed, and we appreciate the opportunity to consult on her care. Follow Up Ordered: Return in about 3 months (around 05/09/2021) for Recheck with testing. Subjective: Hailey Carcamo is a 30 y.o. female seen in the office today for consultation regarding painful varicose veins of the left leg. Mrs. Carcamo (birthday 1990) was seen in the office on February 06, 2021. She presents at the request of her family doctor to evaluate varicose veins. She states that she has had varicose veins for a number of years, and noticed them more prominently with her last in 2018. She had twins delivered by at that time. Since the delivery of her twins, she is continue to have increasing pain and discomfort and prominence of varicose veins of the left anterior lateral thigh and lateral knee area as well as anterior tibial area. She says her right leg does have some scattered prominent spider veins and reticular veins in the right anterior tibial, but the left leg is much more symptomatic. 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 She states that she does not use any compression stockings except on a rare basis in the past when the weather was cooler. She states her grandmother did have varicose vein problems and actually had 3 vein stripping's, but Mrs. Carcamo denies any procedures or interventions presently. She is not anticipating to have any further children at this point time and had her fallopian tubes tied with her delivery. She denies any ulcers or tissue loss or gangrene. She denies any claudication symptoms. She denies any tobacco abuse. She denies any evidence of other major medical issues. She denies any deep venous thrombosis or superficial venous thrombosis episodes. Histories: Past Medical History: Diagnosis Date Spider veins Varicose veins of leg with pain, left Past Surgical History: Procedure Laterality Date SECTION 2018 Family History Problem Relation Age of Onset Asthma Father Diabetes Maternal Grandmother Hypertension Maternal Grandmother Heart disease Maternal Grandfather Social History Tobacco Use Smoking status: Never Smoker Smokeless tobacco: Never Used Substance Use Topics Alcohol use: Not on file Drug use: Not on file Current Outpatient Medications Medication Sig Dispense Refill azelaic acid (FINACEA) 15 % gel Apply topically 2 (two) times a day After skin is thoroughly washed and patted dry, gently but thoroughly massage a thin film of azelaic acid cream into the affected area twice daily, in the morning and evening. . FLUoxetine (PROZAC) 20 MG capsule Take 20 mg by mouth daily . No current facility-administered medications for this visit. No Known Allergies Review of Systems Constitutional: Negative for chills, decreased appetite, fever, night sweats, weight gain and weight loss. HENT: Negative. Negative for hoarse voice and sore throat. Eyes: Negative for vision loss in left eye, vision loss in right eye and visual disturbance. Cardiovascular: Positive for leg swelling (Mild left leg). Negative for chest pain, claudication, cyanosis, dyspnea on exertion, irregular heartbeat, palpitations and paroxysmal nocturnal dyspnea. Respiratory: Negative for cough, hemoptysis, shortness of breath, sleep disturbances due to breathing and wheezing. Endocrine: Negative. Negative for cold intolerance. Hematologic/Lymphatic: Negative for bleeding problem. Does not bruise/bleed easily. Skin: Negative. Negative for color change, dry skin, nail changes and poor wound healing. Musculoskeletal: Positive for myalgias (Left leg varicose vein tenderness and soreness.). Negative for arthritis, back pain, falls, gout, joint pain and muscle weakness. Gastrointestinal: Negative for abdominal pain, constipation, diarrhea, heartburn, jaundice, melena, nausea and vomiting. Genitourinary: Negative for dysuria, flank pain, frequency, hematuria and nocturia. Neurological: Negative for brief paralysis, dizziness, focal weakness, headaches, light-headedness, loss of balance, numbness and paresthesias. Psychiatric/Behavioral: Negative for altered mental status, depression, memory loss and substance abuse. The patient is not nervous/anxious. Allergic/Immunologic: Negative. Negative for hives and persistent infections. Objective: Vitals: Vitals: 02/06/21 1314 02/06/21 1319 BP: 126/81 116/67 BP Location: Right arm Left arm Patient Position: Sitting Sitting BP Cuff Size: Adult Adult Pulse: (!) 55 (!) 55 SpO2: 100% 99% Weight: 96.7 kg (213 lb 3.2 oz) 96.8 kg (213 lb 4.8 oz) Height: 5' 7 5' 7 Physical Exam Vitals reviewed. Constitutional: General: She is awake. Appearance: Normal appearance. She is well-developed. She is obese. HENT: Head: Normocephalic and atraumatic. Eyes: General: Lids are normal. Extraocular Movements: Extraocular movements intact. Conjunctiva/sclera: Conjunctivae normal. Neck: Thyroid: No thyromegaly. Vascular: Normal carotid pulses. No carotid bruit or JVD. Trachea: Trachea normal. Cardiovascular: Rate and Rhythm: Normal rate and regular rhythm. Pulses: Carotid pulses are 2+ on the right side and 2+ on the left side. Radial pulses are 2+ on the right side and 2+ on the left side. Popliteal pulses are 2+ on the right side and 2+ on the left side. Dorsalis pedis pulses are 2+ on the right side and 2+ on the left side. Posterior tibial pulses are 2+ on the right side and 2+ on the left side. Heart sounds: Normal heart sounds. No murmur heard. Comments: Right leg has reticular varicose veins and quaternary varicose veins right anterior tibia with a couple scattered spider vein complexes. The veins measure 0.2 to 2 mm in maximum diameter. The left leg has secondary, tertiary, quaternary varicose veins from the medial left mid thigh running anteriorly over the thigh to the lateral knee area and a very tortuous pattern. It measures 4 to 6 mm in diameter. It runs then lateral to the tibial ridge and then the anterior tibial ridge has a varicose vein complex measuring 4 to 6 mm without clot, cord, rope. The vein appears to be a branch off the great saphenous vein, rather than the anterior saphenous vein. Pulmonary: Effort: Pulmonary effort is normal. Breath sounds: Normal breath sounds. No decreased breath sounds, wheezing, rhonchi or rales. Abdominal: General: Abdomen is protuberant. Bowel sounds are normal. There is no abdominal bruit. Palpations: Abdomen is soft. Abdomen is not rigid. Tenderness: There is no abdominal tenderness. There is no guarding or rebound. Comments: Limited exam due to body habitus and obesity. Musculoskeletal: General: Normal range of motion. Cervical back: Full passive range of motion without pain, normal range of motion and neck supple. Skin: General: Skin is warm and dry. Capillary Refill: Capillary refill takes less than 2 seconds. Nails: There is no clubbing. Neurological: General: No focal deficit present. Mental Status: She is alert and oriented to person, place, and time. Cranial Nerves: Cranial nerves are intact. Sensory: Sensation is intact. Motor: Motor function is intact. Coordination: Coordination is intact. Gait: Gait is intact. Psychiatric: Attention and Perception: Attention and perception normal. Mood and Affect: Mood and affect normal. Speech: Speech normal. Behavior: Behavior normal. Behavior is cooperative. Thought Content: Thought content normal. Cognition and Memory: Cognition and memory normal. Judgment: Judgment normal. [facility] Venous [facility]- Primary Unspecified venous (peripheral) insufficiency Varicose veins of left lower extremity with pain [facility] Varicose veins of left lower extremity with pain- Primary Venous insufficiency Unspecified venous (peripheral) insufficiency [facility] Venous insufficiency- Primary Unspecified venous (peripheral) insufficiency Varicose veins of left lower extremity with pain Status post endovenous radiofrequency ablation (RFA) of saphenous vein [facility] Varicose veins of left lower extremity with pain- Primary Venous insufficiency Unspecified venous (peripheral) insufficiency [facility] Venous insufficiency Unspecified venous (peripheral) [facility] Symptomatic reticular veins- Primary Spider veins Asymptomatic varicose veins of left lower extremity History of prior ablation treatment Personal history of surgery to other organs Obesity (BMI 30.0-34.9) [facility] Diagnosis Symptomatic reticular veins- Primary Spider veins Asymptomatic varicose veins of left lower extremity [facility] Diagnosis Symptomatic reticular veins- Primary History of prior ablation treatment Personal history of surgery to other organs [facility] Diagnosis Symptomatic reticular veins- Primary Spider veins S/P sclerotherapy of varicose veins Other postprocedural status documented [facility] Summary Purpose Family History No Family History Records FoundNo Family History Records FoundNo Family History Records FoundNo Family History Records Found Advance Directives No Advanced Directives Records FoundDocuments on File Type Date Recorded Patient [employer] Advance Directives and Living Will Documents on File Type Date Recorded Patient [employer] Advance Directives and Living Will Documents on File Type Date Recorded Patient [employer] Advance Directives and Livin g Will 05/10/2021 12:52 PM Documents on File Type Date Recorded Patient [employer] Advance Directives and Livin g Will 05/10/2021 12:52 PM Documents on File Type Date Recorded Patient [employer] Advance Directives and Livin g Will 10/30/2021 1:03 PM Reason for Referral Status Reason Specialty Diagnoses / Procedures Re ferred By Contact Referred To Contact Authorized Cardiology Diagnoses Varicose veins of both lower extremities with pain Procedures Ultrasound venous insufficiency exam Char Zamudio III, DO [address] [place] [address] Specialty Diagnoses / Procedures Referred By Cory esquivel Referred To Contact Cardiology Diagnoses Venous insufficiency Varicose veins of left lower extremity with pain Status post endovenous radiofrequency ablation (RFA) of saphenous vein Procedures Ultrasound duplex venous leg left Char Zamudio III, DO [address] [place] [address] Referral ID Status Reason Start Date Expiration Date V isits Requested Visits Authorized [id number] Authorized 09/08/2021 09/08/2022 1 1 Specialty Diagnoses / Procedures Referred By Cory esquivel Referred To Contact Cardiology Diagnoses Venous insufficiency Varicose veins of left lower extremity with pain Procedures Ultrasound Venous Ablation Char Zamudio III, DO [address] [place] [address] Referral ID Status Reason Start Date Expiration Date V isits Requested Visits Authorized [id number] Authorized 09/06/2021 09/06/2022 1 1 Additional Source Comments INFORMATION SOURCE (unrecogn ized section and content) DATE CREATED AUTHOR AUTHOR'S ORGANIZ ATION 04/30/2019 [facility] DATE CREATED AUTHOR AUTHOR'S ORGANIZ ATION 10/31/2021 [facility] DATE CREATED AUTHOR AUTHOR'S ORGANIZ ATION 06/01/2022 [facility] Reason for Visit (unrecogniz ed section and content) Reason Comments Follow-up Reason Onset Date Comments Medication Refill 08/03/2021 Care Teams (unrecognized sec tion and content) Dentist/Owner Relationship Specialty Start Date End Date Ursula Foster MD [address] [facility] [address] [place] [address] PCP - General Family Medicine 01/13/21 Char Zamudio III, DO [address] [place] [address] Consulting Physician Vascular Surgery 05/10/21 Dentist/Owner Relationship Specialty Start Date End Date Ursula Foster MD [address] [facility] [address] [place] [address] PCP - General Family Medicine 01/13/21 Char Zamudio III, DO [address] [place] [address] Consulting Physician Vascular Surgery 05/10/21 Dentist/Owner Relationship Specialty Start Date End Date Ursula Foster MD [address] [facility] [address] [place] [address] PCP - General Family Medicine 01/13/21 Char Zamudio III, DO [address] [place] [address] Consulting Physician Vascular Surgery 05/10/21 Dentist/Owner Relationship Specialty Start Date End Date Ursula Foster MD [address] [facility] [address] [place] [address] PCP - General Family Medicine 01/13/21 Char Zamudio III, DO [address] [place] [address] Consulting Physician Vascular Surgery 05/10/21 Dentist/Owner Relationship Specialty Start Date End Date Ursula Foster MD [address] [facility] [address] [place], [place] [id number] PCP - General Family Medicine 01/13/21 Char Zamudio III, DO [address] [place] [address] Consulting Physician Vascular Surgery 05/10/21 Dentist/Owner Relationship Specialty Start Date End Date Ursula Foster MD [address] [facility] [address] [place] [address] PCP - General Family Medicine 01/13/21 Char Zamudio III, DO [address] [facility] [place] [address] Consulting Physician Vascular Surgery 05/10/21 Dentist/Owner Relationship Specialty Start Date End Date Ursula Foster MD [address] [facility] [address] [place] [address] PCP - General Family Medicine 01/13/21 Char Zamudio III, DO [address] [facility] [place] [address] Consulting Physician Vascular Surgery 05/10/21 FOR RECORDS PERTAINING TO PATIENTS WHO ARE OR HAVE BEEN ENROLLED IN A CHEMICAL DEPENDENCY/SUBSTANCEABUSE PROGRAM, SOME INFORMATION MAY BE OMITTED. This clinical summary was aggregated from multiple sources. Caution should be exercised in using it in the provision of clinical care. This summary normalizes information from multiple sources, and as a consequence, information in this document may materially change the coding, format and clinical context of patient data. In addition, data may be omitted in some cases. CLINICAL DECISIONS SHOULD BE BASED ON THE PRIMARY CLINICAL RECORDS. [facility] [employer] [facility]. provides no warranty or guarantee of the accuracy or completeness of information in this document.
[2023-08-23 21:07] LABS: Chlamydia By Nucleic Acid AMP Negative (Negative); Gonococcus By Nucleic Acid AMP Negative (Negative)
[2023-08-27 11:08] LABS: HPV APTIMA, High Risk Negative (Negative)
== END | disposition home or self-care (01) ==
PROVIDERS: PCP Family Medicine; Referring Provider Nurse Practitioner Women's Health; Visit Provider Nurse Practitioner Women's Health
DX: Z12.4 Encounter for screening for malignant neoplasm of cervix (principal); Z11.3 Encounter for screening for infections with a predominantly sexual mode of transmission
CPT/HCPCS: 87491; 87591; 87624; 88175; G0145

== ENCOUNTER → 2023-08-30 | Outpatient (CLI) | payer MEDICAID, SELFPAY ==
--- OUTSIDE RECORDS SUMMARY | 2023-08-30 10:40 | XMS RPT_ITS | CCD ---
Author Name Unknown Address [address] [place] [address] Organization [facility] Care Team Providers Care Mathematical Statistician Name Role Phone JACQUELYN ELIAS Unavailable Unavail [...] Provider Craske III, DO, W. Don Unavailable URSULA [...] Char ZAMUDIO III Attending Unavailable URSULA FOSTER [facility] Care Unavailable Char ZAMUDIO III Attending Unavailable URSULA FOSTER [facility] Care Unavailable Char ZAMUDIO III Attending [...] mm[Hg] W. Craske III, DO Work Phone: [facility] 05-31-2022 08:09-0500 Heart rate 59 /min W. Craske III, DO Work Phone: [facility] 05-31-2022 08:09-0500 Systolic blood pressure 130 mm[Hg] W. Craske III, D O Work Phone: [facility] 05-31-2022 08:05-0500 Body height 170.2 cm W. Craske III, DO Work Phone: [facility] 05-31-2022 08:05-0500 Body mass index (BMI) [Ratio] 29.6 kg/m2 W. Craske III, DO Work Phone: [facility] 05-31-2022 08:05-0500 Body weight 85.73 kg W. Craske III, DO Work Phone: [facility] 03-01-2022 08:30-0400 Diastolic blood pressure 74 mm[Hg] W. Craske III, DO Work Phone: [facility] 03-01-2022 08:30-0400 Heart rate 65 /min W. Craske III, DO Work Phone: [facility] 03-01-2022 08:30-0400 Systolic blood pressure 107 mm[Hg] W. Craske III, D O Work Phone: [facility] 03-01-2022 08:23-0400 Body height 170.2 cm W. Craske III, DO Work Phone: [facility] 03-01-2022 08:23-0400 Body mass index (BMI) [Ratio] 30.7 kg/m2 W. Craske III, DO Work Phone: [facility] 03-01-2022 08:23-0400 Body weight 88.91 kg W. Craske III, DO Work Phone: [facility] 11-20-2021 13:12-0400 Diastolic blood pressure 79 mm[Hg] Nyoka Fauser AUTOMOTIVE SERVICE MANAGER Work Phone: [facility] 11-20-2021 13:12-0400 Heart rate 60 /min Nyoka Fauser AUTOMOTIVE SERVICE MANAGER Work Phone: [facility] 11-20-2021 13:12-0400 Systolic blood pressure 128 mm[Hg] Nyoka Fauser AUTOMOTIVE SERVICE MANAGER Work Phone: [facility] 11-20-2021 13:11-0400 Body height 170.2 cm Nyoka Fauser AUTOMOTIVE SERVICE MANAGER Work Phone: [facility] 11-20-2021 13:11-0400 Body mass index (BMI) [Ratio] 33.36 kg/m2 Nyoka Fauser AUTOMOTIVE SERVICE MANAGER Work Phone: [facility] 11-20-2021 13:11-0400 Body weight 96.62 kg Nyoka Fauser AUTOMOTIVE SERVICE MANAGER Work Phone: [facility] 05-10-2021 13:58-0400 Diastolic blood pressure 77 mm[Hg] W. Craske III, DO Work Phone: [facility] 05-10-2021 13:58-0400 Heart rate 66 /min W. Craske III, DO Work Phone: [facility] 05-10-2021 13:58-0400 Systolic blood pressure 116 mm[Hg] W. Craske III, D O Work Phone: [facility] 05-10-2021 13:56-0400 Body height 170.2 cm W. Craske III, DO Work Phone: [facility] 05-10-2021 13:56-0400 Body mass index (BMI) [Ratio] 33.16 kg/m2 W. Craske III, DO Work Phone: [facility] 05-10-2021 13:56-0400 Body weight 96.03 kg W. Craske III, DO Work Phone: [facility] 05-10-2021 13:56-0400 Respiratory rate 16 /min Char Craneske III, DO Work Phone: [facility] 02-06-2021 13:19-0400 Body height 170.2 cm Char Craneske III, DO Work Phone: [facility] 02-06-2021 13:19-0400 Body mass index (BMI) [Ratio] 33.41 kg/m2 Char Craneske III, DO Work Phone: [facility] 02-06-2021 13:19-0400 Body weight 96.75 kg Char Craneske III, DO Work Phone: [facility] 02-06-2021 13:19-0400 Diastolic blood pressure 67 mm[Hg] Char Craneske III, DO Work Phone: [facility] 02-06-2021 13:19-0400 Heart rate 55 /min Char Cranemahade III, DO Work Phone: [facility] 02-06-2021 13:19-0400 SaO2% (BldA) [Mass fraction] 99 % Char Craneske III, DO Work Phone: [facility] 02-06-2021 13:19-0400 Systolic blood pressure 116 mm[Hg] Char Zamudio III, D O Work Phone: [facility] Encounters Encounter Date Encounter Type Care Provider Facility Start: 05-31-2022 End: 05[facility]31[facility] Start: 05-31-2022 End: 05-31-2022 Office outpatient visit 10 minutes WRyan Kaur Robb DO Work Phone: [facility] [...] Start: 03-11-2029 Tetanus vaccination Tetanus: Every 10yrs [facility] Start: 05-03-2022 End: 05-03-2022 Patient encounter procedure 05/03/2022 Procedure visit Cardiology Char Zamudio III, DO [address] [facility] [place] [address] [facility] Start: 05-03-2022 End: 03-01-2023 SCLEROTHERAPY SCLEROTHERAPY Procedures Routine Symptomatic reticular veins Spider veins Asymptomatic varicose veins of left lower extremity Expected: 05/03/2022, Expires: 03/01/2023 [facility] Work Phone: Payers Date Payer Category Payer Medicaid [id number] 2021 Medicaid [id number]. [id number] 2021 Medicaid [id number] 2021 Medicaid [id number] 2020 Unknown [id number] 1990 Unknown [id number] 2.16. [id number] 1990 Unknown [id number] 2.16. [id number] 1990 Unknown [id number] 2.16. [id number] 1991 Unknown [id number] 2.16. [id number] 1991 Unknown [id number] 2.16. [id number] 1991 Unknown [id number] 2.16. [id number] 1991 Unknown [id number] 2.16. [id number] 1991 Unknown [id number] 2.16. [id number] 1990 Unknown [id number] 2.16. [id number] 1990 Unknown [id number] 2.16. [id number] Social History Date Type Detail Facility Start: 02-03-2021 End: 02-06-2021 Tobacco smoking status NHIS Never smoker [facility] Start: 02-03-2021 End: 05-31-2022 Tobacco use and exposure Never used [facility] Start: 1990 Sex Assigned At Not on file [facility] Start: 10-17-2021 End: 05-31-2022 Exposure to SARS-CoV-2 (event) Not sure [facility] Start: 05-10-2021 End: 05-31-2022 Tobacco smoking status [facility] Occasional tobacco smoker [facility] Start: 05-10-2021 End: 05-31-2022 Alcohol intake Current drinker of alcohol (finding) [facility] Start: 05-10-2021 History SDOH Alcohol Comment occasional [facility] History of tobacco use [facility] Start: 03-01-2022 Tobacco Comment Once a week [facility] Start: 05-31-2022 Tobacco Comment 2-3 cig a week [facility] Clinical Notes 02-06-2021 to 05-31-2022 WRyan Zamudio III, DO - 05/31/2022 8:05 AM ESTPatient InstructionsWRyan Zamudio III, DO - 03/01/2022 8:29 AM EDTPatient InstructionsNicola Gonzalez, AUTOMOTIVE SERVICE MANAGER - 11/20/2021 1:14 PM EDTPatient Instructions Note [...] veins of the left lower extremity. Mrs. Carcaom (birthday 1990) was seen in the [place] office on May 31, 2022. It has [...] Thought content normal. documented in this encounter [facility] 05-31-2022 Instructions Irina Goetz MA - 05/31/2022 8:04 AM EST How to contact your Care Team: Providers: DO Nicola Pearl III, CNP Jill Bender, PA Nurse: Alena Webber RN To reschedule office appointments call Scheduling [phone] In case of an emergency please call 911. When in need of refills please call the phone number listed above. Please include medication name, pharmacy name and specify 30 or 90 day supply Please check with your pharmacy within 24 hours of your request for refill. You must follow up as directed to continue current refills. Thank you! documented in this encounter [facility] 03-01-2022 History of Presen [...] Carcamo (birthday [birth year]) was seen in the [place] office on March 01, 2022. 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 She also has some [...] Thought content normal. documented in this encounter [facility] 03-01-2022 Instructions Irina Goetz MA - 03/01/2022 8:23 AM EDT How to contact your Care Team: Providers: DO Nicola Pearl III, CNP Jill Bender, PA Nurse: Alena Webber RN To reschedule office appointments call Scheduling [phone] In case of an emergency please call 911. When in need of refills please call the phone number listed above. Please include medication name, pharmacy name and specify 30 or 90 day supply Please check with your pharmacy within 24 hours of your request for refill. You must follow up as directed to continue current refills. Thank you! documented in this encounter [facility] 11-20-2021 Evaluation + Plan [...] months with Dr. Zamudio to discuss sclerotherapy [facility] 11-20-2021 Miscellaneous Notes Associate [...] to discuss sclerotherapy documented in this encounter [facility] 11-20-2021 History of Presen t illness Narrative Images from the original note were not included. VASCULAR MEDICINE CLINIC NOTE Patient Name: Hailey Carcamo MR #: [id number] : 1990 Physicians: Ursula Foster MD (Family); [...] greatly improved. She just arrived back from [place] yesterday. 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 [...] not agitated. Approximately 30 minutes was spent [id number], reviewing chart, and writing notes. More than 50% of this time was spent counseling and coordinating care with the patient. Thank you for allowing me to participate in Hailey Carcamo's care. Should you have any questions regarding their management please do not hesitate to contact me. documented in this encounter [facility] 11-20-2021 Instructions Mason Chavez MA - 11/20/2021 1:12 PM EDT How to contact your Care Team: Providers: DO Nicola Pearl III, CNP Jill Bender, PA Nurse: Alena Webber RN To reschedule office appointments call Scheduling [phone] In case of an emergency please call 911. When in need of refills please call the phone number listed above. Please include medication name, pharmacy name and specify 30 or 90 day supply Please check with your pharmacy within 24 hours of your request for refill. You must follow up as directed to continue current refills. Thank you! documented in this encounter [facility] 10-27-2021 History of Presen t illness Narrative ULTRASOUND-GUIDED TRANSCATHETER ENDOVENOUS GREAT SAPHENOUS VEIN RADIOFREQUENCY ABLATION PATIENT: Hailey Carcamo DATE: 10/27/2021 PHYSICIAN: Char Zamudio III, DO The patient was counseled [...] with an 11 blade scalpel. A 7 Salvadorean sheath was then placed into the vein [...] Zamudio III, DO documented in this encounter [facility] 05-10-2021 Instructions Hanna Webber RN - 05/10/2021 1:53 PM EDT How to contact your Care Team: Providers: DO Nicola Pearl III, CNP Nurse: Alena Webber RN To reschedule office appointments call Scheduling [phone] In case of an emergency please call 911. When in need of refills please call the phone number listed above. Please include medication name, pharmacy name and specify 30 or 90 day supply Please check with your pharmacy within 24 hours of your request for refill. You must follow up as directed to continue current refills. Thank you! documented in this encounter [facility] 05-10-2021 History of Presen [...] the left leg. documented in this encounter [facility] 02-06-2021 History of Presen [...] Judgment: Judgment normal. documented in this encounter [facility] Venous insufficiency- Primary Unspecified venous (peripheral) insufficiency Varicose veins of left lower extremity with pain [facility] Varicose veins of left lower extremity with pain- Primary Venous insufficiency Unspecified venous (peripheral) insufficiency [facility] Venous insufficiency- Primary Unspecified venous (peripheral) insufficiency Varicose veins of left lower extremity with pain Status post endovenous radiofrequency ablation (RFA) of saphenous vein [facility] Varicose veins of left lower extremity with pain- Primary Venous insufficiency Unspecified venous (peripheral) insufficiency [facility] Venous insufficiency Unspecified venous (peripheral) insufficiency [facility] Symptomatic reticular veins- Primary Spider veins Asymptomatic varicose veins of left lower extremity History of prior ablation treatment Personal history of surgery to other organs Obesity (BMI 30.0-34.9) [facility] Diagnosis Symptomatic reticular veins- Primary Spider veins Asymptomatic varicose veins of left lower extremity [facility] Diagnosis Symptomatic reticular veins- Primary History of prior ablation treatment Personal history of surgery to other organs [facility] Diagnosis Symptomatic reticular veins- Primary Spider veins S/P sclerotherapy of varicose veins Other postprocedural status documented in this encounter [facility] Summary Purpose Family History No Family History Records FoundNo Family History Records FoundNo Family History Records FoundNo Family History Records Found Advance Directives No Advanced Directives Records FoundDocuments on File Type Date Recorded Patient Water Resources Engineer Expl anation Advance Directives and Living Will Documents on File Type Date Recorded Patient Water Resources Engineer Expl anation Advance Directives and Living Will Documents on File Type Date Recorded Patient Water Resources Engineer Expl anation Advance Directives and Livin g Will 05/10/2021 12:52 PM Documents on File Type Date Recorded Patient Water Resources Engineer Expl anation Advance Directives and Livin g Will 05/10/2021 12:52 PM Documents on File Type Date Recorded Patient Water Resources Engineer Expl anation Advance Directives and Livin g Will 10/30/2021 1:03 PM Reason for Referral Status Reason Specialty Diagnoses / Procedures Re ferred By Contact Referred To Contact Authorized Cardiology Diagnoses Varicose veins of both lower extremities with pain Procedures Ultrasound venous insufficiency exam Char Zamudio III, DO [address] [place] [address] Specialty Diagnoses / Procedures Referred By Cory esquivel Referred To Contact Cardiology Diagnoses Venous insufficiency Varicose veins of left lower extremity with pain Status post endovenous radiofrequency ablation (RFA) of saphenous vein Procedures Ultrasound duplex venous leg left Char Zamudio III, DO [address] [place] [address] Referral ID Status Reason Start Date Expiration Date V isits Requested Visits Authorized [id number] Authorized 09/08/2021 09/08/2022 1 1 Specialty Diagnoses / Procedures Referred By Cory esquivel Referred To Contact Cardiology Diagnoses Venous insufficiency Varicose veins of left lower extremity with pain Procedures Ultrasound Venous Ablation Char Zamudio III, DO [address] [place] [address] Referral ID Status Reason Start Date Expiration Date V isits Requested Visits Authorized [id number] Authorized 09/06/2021 09/06/2022 1 1 Additional Source Comments INFORMATION SOURCE (unrecogn ized section and content) DATE CREATED AUTHOR AUTHOR'S ORGANIZ ATION 04/30/2019 [facility] DATE CREATED AUTHOR AUTHOR'S ORGANIZ ATION 10/31/2021 [facility] DATE CREATED AUTHOR AUTHOR'S ORGANIZ ATION 06/01/2022 [facility] Reason for Visit (unrecogniz ed section and content) Reason Comments Follow-up Reason Onset Date Comments Medication Refill 08/03/2021 Care Teams (unrecognized sec tion and content) Mathematical Statistician Relationship Specialty Start Date End Date Ursula Foster MD [address] [facility] [place] [place] [address] [place] [address] PCP - General Family Medicine 01/13/21 Char Zamudio III, DO [address] [place] [address] Consulting Physician Vascular Surgery 05/10/21 Mathematical Statistician Relationship Specialty Start Date End Date Ursula Foster MD [address] [facility] [address] [place] [address] PCP - General Family Medicine 01/13/21 Char Zamudio III, DO [address] [place] [address] Consulting Physician Vascular Surgery 05/10/21 Mathematical Statistician Relationship Specialty Start Date End Date Ursula Foster MD [address] [facility] [address] [place] [address] PCP - General Family Medicine 01/13/21 Char Zamudio III, DO [address] [place] [address] Consulting Physician Vascular Surgery 05/10/21 Mathematical Statistician Relationship Specialty Start Date End Date Ursula Foster MD [address] [facility] [address] [place] [address] PCP - General Family Medicine 01/13/21 Char Zamudio III, DO [address] [place] [address] Consulting Physician Vascular Surgery 05/10/21 Mathematical Statistician Relationship Specialty Start Date End Date Ursula Foster MD [address] [facility] [address] [place], [place] [id number] PCP - General Family Medicine 01/13/21 Char Zamudio III, DO [address] [place] [address] Consulting Physician Vascular Surgery 05/10/21 Mathematical Statistician Relationship Specialty Start Date End Date Ursula Foster MD [address] [facility] [address] [place] [address] PCP - General Family Medicine 01/13/21 Char Zamudio III, DO [address] [place] [address] Consulting Physician Vascular Surgery 05/10/21 Mathematical Statistician Relationship Specialty Start Date End Date Ursula Foster MD [address] [facility] [address] [place] [address] PCP - General Family Medicine 01/13/21 Char Zamudio III, DO [address] [place] [address] Consulting Physician Vascular Surgery 05/10/21 FOR RECORDS [...] BE BASED ON THE PRIMARY CLINICAL RECORDS. [facility] [facility]. provides no warranty or guarantee of the accuracy or completeness of information in this document.
[2023-08-30 12:15] LABS: Absolute Lymphocyte Count 1.93 X10^3/uL (0.83-4.51); Absolute Neutrophil Count 4.2 X10^3/uL (2.0-7.7); Basophil# 0.04 X10^3/uL; Basophil% 0.6 % (0-1); Eosinophil# 0.07 X10^3/uL; Hematocrit 41.4 % (37-47); Hemoglobin 13.5 g/dL (12.0-15.0); Lymphocyte # 1.93 X10^3/ul (0.83-4.51); Lymphocyte % 27.3 % (19-41); Mean Corp Hgb Conc 32.6 g/dL (32-36); Mean Corpuscular Hgb 28.8 pg (27.0-32.0); Mean Corpuscular Volume 88.3 fL (81-99); Monocyte# 0.82 X10^3/uL; Monocyte% 11.6 % (0-10); NRBC Flagged by Analyzer 0 % (0-5); Neutrophil % 59.4 % (47-70); Platelet Count 294 K/mm3 (150-450); RBC Distribution Width SD 41.7 fl (35.1-43.9); Red Blood Count 4.69 M/mm3 (4.2-5.4); White Blood Count 7.1 K/mm3 (4.4-11.0)
[2023-08-30 13:06] LABS: Thyroid Stim Hormone (TSH) 0.62 uIU/mL (0.358-3.74)
== END | disposition home or self-care (01) ==
LOC: MTLAB 10:16
PROVIDERS: PCP Family Medicine; Referring Provider Family Medicine; Visit Provider Family Medicine
DX: R60.9 Edema, unspecified (principal)
CPT/HCPCS: 36415; 84443; 85025

== ENCOUNTER → 2024-11-18 | Outpatient (CLI) | payer MEDICAID, SELFPAY ==
[2024-11-20 10:08] LABS: HPV APTIMA, High Risk Negative (Negative)
== END | disposition home or self-care (01) ==
LOC: LABSPEC 11:31
PROVIDERS: PCP Family Medicine; Referring Provider Nurse Practitioner Family; Visit Provider Nurse Practitioner Family
DX: Z12.4 Encounter for screening for malignant neoplasm of cervix (principal)
CPT/HCPCS: 87624; 88175; G0145

== ENCOUNTER → 2024-11-23 | Outpatient (CLI) | payer MEDICAID, SELFPAY ==
[2024-11-23 10:53] LABS: Absolute Lymphocyte Count 1.54 X10^3/uL (0.83-4.51); Absolute Neutrophil Count 3.4 X10^3/uL (2.0-7.7); Basophil# 0.04 X10^3/uL; Basophil% 0.7 % (0-1); Eosinophil# 0.08 X10^3/uL; Eosinophils% 1.4 % (0-5); Hematocrit 37.5 % (37-47); Hemoglobin 12.3 g/dL (12.0-15.0); Lymphocyte # 1.54 X10^3/ul (0.83-4.51); Lymphocyte % 26.5 % (19-41); Mean Corp Hgb Conc 32.8 g/dL (32-36); Mean Corpuscular Hgb 29.3 pg (27.0-32.0); Mean Corpuscular Volume 89.3 fL (81-99); Mean Platelet Vol. 9.4 fl (6.2-12.0); Monocyte# 0.74 X10^3/uL; Monocyte% 12.7 % (0-10); NRBC Flagged by Analyzer 0 % (0-5); Neutrophil # 3.41 X10^3/uL (2.7-7.7); Neutrophil % 58.7 % (47-70); Platelet Count 286 K/mm3 (150-450); RBC Distribution Width SD 42.5 fl (35.1-43.9); White Blood Count 5.8 K/mm3 (4.4-11.0)
[2024-11-23 12:19] LABS: ALB/GLOB Ratio 1.5 RATIO (0.9-2.4); AST(SGOT) 15 U/L (<=31); Alanine Aminotransfer ALT/SGPT 10 U/L (<=34); Albumin, Serum 4.3 g/dL (3.5-5.0); Alkaline Phosphatase 59 U/L (35-104); Anion Gap 10 (5-15); BUN 16 mg/dL (4-19); BUN/Creat Ratio 19.8 RATIO (10-20); Calcium,Total 9.3 mg/dL (7.6-11.0); Chloride 105 mmol/L (98-108); Cholesterol 151 mg/dL (<=200); Creatinine, Serum 0.78 mg/dL (0.70-1.20); EST Glomerular Filtration Rate 102 (>60); Globulin 2.9 g/dL (2.2-4.2); Glucose 85 mg/dL (70-99); High Density Lipoprotein 69 mg/dL; Low Density Lipoprotein Calc. 75 mg/dL; Potassium 4.4 mmol/L (3.3-5.1); Protein, Total 7.2 g/dL (5.9-8.4); Sodium Level 140 mmol/L (133-145); Total Bilirubin 0.51 mg/dL (0.00-1.30); Triglycerides 36 mg/dL; Very Low Density Lipoprotein 7 mg/dL (5-40); cholesterol:hdl ratio screen 2.18
[2024-11-23 12:20] LABS: Thyroid Stim Hormone (TSH) 0.478 uIU/mL (0.300-4.200); Vitamin B12 531 pg/mL (180-914); Vitamin D,25 Hydroxy 28.8 ng/mL (30-100)
== END | disposition home or self-care (01) ==
PROVIDERS: PCP Family Medicine; Referring Provider Nurse Practitioner Family; Visit Provider Nurse Practitioner Family
DX: N94.3 Premenstrual tension syndrome (principal)
CPT/HCPCS: 36415; 80053; 80061; 82306; 82533; 82607; 84439; 84443; 85025

== ENCOUNTER → 2025-06-03 | Outpatient (CLI) | payer MEDICAID, SELFPAY ==
--- NOTE | 2025-06-03 11:16 | VDLE_ITS ---
Reason For Study Reason For Study: Soft Tissue Disorder RIGHT LEFT CFV is compressible, spontaneous, phasic, competent CFV is compressible, spontaneous, phasic, competent, and demonstrates normal augmentation. and demonstrates normal augmentation. Procedure FV is compressible, spontaneous, phasic, competent and This is a venous duplex using B-mode, color flow and demonstrates normal augmentation. spectral Doppler. POP V is compressible, spontaneous, phasic, competent Exam performed in department. and demonstrates normal augmentation. A preliminary report was called and/or faxed to Britney, T/P Trunk is compressible. SUPERVISOR NET MAKING. Acute deep vein thrombosis is noted in the PTV. It is dilated and NONCOMPRESSIBLE. LT PerV is compressible. HX of GSV ablation. VL/Venous Duplex US, Unilateral Interpretation Summary Acute deep vein thrombosis is noted in the left posterior tibial vein. Ordering Physician: Elias Shaikh Performed By: Michelle Mckenzie RVT
== END | disposition home or self-care (01) ==
LOC: CVS 11:10
PROVIDERS: Referring Provider Family Medicine; Visit Provider Family Medicine
DX: M79.89 Other specified soft tissue disorders (principal)
CPT/HCPCS: 93971